=== PATIENT | male | born 1945 | race Caucasian/White ===

== ENCOUNTER 2022-06-11 01:20 | Inpatient (IN) | payer OTHER ==
[2022-06-11] VITALS (15 sets, daily range): BP systolic 105–139; BP diastolic 52–80
[~2022-06-11] VITALS: Ht 167.6 cm; Wt 92.4 kg
[2022-06-11 03:05] LABS: Hematocrit 22.5 % (41.0-53.0); Hemoglobin 7.8 g/dL (13.5-17.5); Mean Corpuscular Hemoglobin 31.6 pg (28.0-32.0); Mean Corpuscular Hgb Conc. 34.6 g/dL (32.0-36.0); Mean Corpuscular Volume 91.4 fL (80.0-100.0); Red Blood Cells 2.46 10^6/uL (4.5-5.90); Red Cell Distribution Width 18.7 % (11.8-14.3)
[2022-06-11 03:08] LABS: Albumin 3.1 g/dL (3.4-5.0); Calcium 8.1 mg/dL (8.5-10.1); Potassium 3.7 mmol/L (3.5-5.1)
[2022-06-11 03:09] LABS: White Blood Cell 1.4 10^3/uL (4.4-10.8)
[2022-06-11 03:10] LABS: BUN/Creatinine Ratio 16.3; Lactic Acid w/Reflex 2.4 mmol/L (0.4-2.0)
[2022-06-11 03:11] LABS: Basophils % (manual) 0 (0.0-2.0); Blast Cells 0; Metamyelocytes % 0; Myelocytes % 0; Promyelocytes % 0; Reactive Lymphocytes 0
[2022-06-11 03:13] LABS: Bilirubin, Total 1.2 mg/dL (0.2-1.0); Total Protein 5.3 g/dL (6.4-8.2)
[2022-06-11] MEDS ORDERED: VANCOMYCIN PER PHARMACY 0 MG IV SCH (03:30)
[2022-06-11] MEDS ORDERED: CEFEPIME 1GM/ 50ML 50 ML IV ONE (03:30)
[2022-06-11] MEDS ORDERED: DOCUSATE SOD 100 MG CAP PO PRN (03:45)
[2022-06-11] MEDS ORDERED: AZITHROMYCIN 500MG/ 250ML 250 ML IV ONE (03:45)
[2022-06-11] MEDS ORDERED: DEXTROSE (50%) 50ML SYRG IV PRN (03:45)
[2022-06-11] MEDS ORDERED: ONDANSETRON HCL 4 MG/2 ML VIAL IV PRN (03:45)
[2022-06-11] MEDS ORDERED: ACETAMINOPHEN 500 MG TAB PO PRN (03:45)
[2022-06-11] MEDS: LACTATED RINGER'S 1,000 ML IV SCH ×2 (04:00→23:45)
[2022-06-11] MEDS ORDERED: methylPREDNISolone SOD SUCC 40 MG/ML VL IV ONE (04:30)
[2022-06-11] MEDS ORDERED: MORPHINE SULFATE INJ 2 MG/ml SYRG IV PRN (04:30)
[2022-06-11] MEDS ORDERED: FUROSEMIDE 20 MG/2 ML VIAL IV ONE (04:30)
[2022-06-11] MEDS ORDERED: ALBUTEROL SULF 2.5 MG/0.5ML(0.5%) NEB SOLN NEB PRN (04:30)
[2022-06-11] MEDS ORDERED: IPRATROPIUM BROM 0.5 MG/2.5ML INH SOL NEB PRN (04:30)
[2022-06-11] MEDS ORDERED: NITROGLYCERIN 0.4 MG SL TAB SL PRN (04:30)
[2022-06-11] MEDS ORDERED: ALBUMIN 25% 100 ML IV ONE (04:30)
[2022-06-11 05:13] LABS: Albumin 2.5 g/dL (3.4-5.0); BUN/Creatinine Ratio 21.1; Calcium 6.9 mg/dL (8.5-10.1); Potassium 3.3 mmol/L (3.5-5.1)
[2022-06-11 05:16] LABS: Bilirubin, Total 0.9 mg/dL (0.2-1.0); Total Protein 4.3 g/dL (6.4-8.2)
[2022-06-11 05:18] LABS: Hematocrit 18.8 % (41.0-53.0); Mean Corpuscular Hemoglobin 31.5 pg (28.0-32.0); Mean Corpuscular Hgb Conc. 33.3 g/dL (32.0-36.0); Mean Corpuscular Volume 94.7 fL (80.0-100.0); Red Blood Cells 1.98 10^6/uL (4.5-5.90); Red Cell Distribution Width 18.9 % (11.8-14.3)
[2022-06-11 05:42] LABS: Band Neutrophils % (manual) 18; Eosinophils % (manual) 7 (0-7); Lymphocytes % (manual) 16 (10.0-50.0); Monocytes % (manual) 3 (0-12)
[2022-06-11 06:08] LABS: White Blood Cell 0.9 10^3/uL (4.4-10.8)
[2022-06-11 06:09] LABS: Basophils % (manual) 0 (0.0-2.0); Blast Cells 0; Hemoglobin 6.3 g/dL (13.5-17.5); Myelocytes % 0; Reactive Lymphocytes 0
[2022-06-11 07:17] LABS: Band Neutrophils % (manual) 14; Eosinophils % (manual) 4 (0-7); Lymphocytes % (manual) 21 (10.0-50.0); Metamyelocytes % 1; Monocytes % (manual) 3 (0-12); Promyelocytes % 1
[2022-06-11] MEDS: MULTIPLE VITAMIN TAB PO SCH (09:34)
[2022-06-11] MEDS: FUROSEMIDE 20 MG/2 ML VIAL IV SCH (09:34)
[2022-06-11] MEDS: HYDROcodone-ACET 5/325MG TAB PO PRN ×3 (09:46→22:06)
[2022-06-11] MEDS: FAMOTIDINE (10MG/ML) 2ML VL IV SCH ×2 (10:03→22:23)
[2022-06-11] MEDS: ACCU-CHEK COMFORT CURVE STRIP VI SCH ×4 (12:01→22:27)
[2022-06-11] MEDS: InsuLIN REG 1unit/0.01ml Soln (100units/ml) SC SCH ×4 (12:04→23:00)
[2022-06-11] MEDS ORDERED: MULT1TAB65 PO (12:40)
[2022-06-11] MEDS ORDERED: B-COCAP34 PO (12:40)
[2022-06-11] MEDS ORDERED: ATOR10TA PO (12:40)
[2022-06-11] MEDS ORDERED: ASCO-22 PO (12:40)
[2022-06-11] MEDS ORDERED: OXY5T PO (12:40)
[2022-06-11] MEDS ORDERED: LEVO50TA7 PO (12:40)
[2022-06-11] MEDS ORDERED: CHON400C PO (12:40)
[2022-06-11] MEDS ORDERED: MORP15TA PO (12:40)
[2022-06-11] MEDS ORDERED: TAMS1CAP25 PO (12:40)
[2022-06-11] MEDS ORDERED: GUAI400T35 PO (12:40)
[2022-06-11] MEDS ORDERED: MECL12.514 PO (12:40)
[2022-06-11] MEDS ORDERED: ALLO300T2 PO (12:40)
[2022-06-11] MEDS ORDERED: OMEG100078 PO (12:40)
[2022-06-11] MEDS ORDERED: DOCU100T15 PO (12:40)
[2022-06-11] MEDS ORDERED: GABA300C10 PO (12:40)
[2022-06-11] MEDS ORDERED: SERT50TA19 PO (12:40)
[2022-06-11] MEDS ORDERED: CALC-509 PO (12:40)
[2022-06-11] MEDS ORDERED: MELA3TAB42 PO (12:40)
[2022-06-11] MEDS ORDERED: OMEP20TA PO (12:40)
[2022-06-11] MEDS ORDERED: GLUC750T29 PO (12:40)
[2022-06-11] MEDS ORDERED: SENN-62 PO (12:40)
[2022-06-11] MEDS: methylPREDNISolone SOD SUCC 40 MG/ML VL IV SCH ×4 (14:23→22:21)
[2022-06-11] MEDS: FILGRASTIM(TBO) 480 MCG/0.8 ML SYRG SC SCH (17:47)
[2022-06-12] VITALS (11 sets, daily range): BP systolic 108–144; BP diastolic 61–81
[2022-06-12] MEDS: CEFEPIME 1GM/ 50ML 50 ML IV SCH ×2 (00:32→09:28)
[2022-06-12] MEDS ORDERED: FUROSEMIDE 20 MG/2 ML VIAL IV ONE (01:00)
[2022-06-12] MEDS ORDERED: IOHEXOL 350 MG/ML 100ML IJ ONE (01:35)
[2022-06-12] MEDS: methylPREDNISolone SOD SUCC 40 MG/ML VL IV SCH ×2 (06:24→14:00)
[2022-06-12] MEDS: ACCU-CHEK COMFORT CURVE STRIP VI SCH ×2 (06:24→11:49)
[2022-06-12] MEDS: InsuLIN REG 1unit/0.01ml Soln (100units/ml) SC SCH ×2 (06:35→12:13)
[2022-06-12 06:36] LABS: Hematocrit 31.6 % (41.0-53.0); Hemoglobin 10.8 g/dL (13.5-17.5); Mean Corpuscular Hemoglobin 30.9 pg (28.0-32.0); Mean Corpuscular Hgb Conc. 34.3 g/dL (32.0-36.0); Red Blood Cells 3.51 10^6/uL (4.5-5.90); Red Cell Distribution Width 16.9 % (11.8-14.3)
[2022-06-12 06:44] LABS: Potassium 3.4 mmol/L (3.5-5.1)
[2022-06-12 06:50] LABS: Albumin 3.9 g/dL (3.4-5.0); Calcium 8.8 mg/dL (8.5-10.1)
[2022-06-12 06:56] LABS: Basophils % (manual) 0 (0.0-2.0); Blast Cells 0; Eosinophils % (manual) 0 (0-7); Promyelocytes % 0; Reactive Lymphocytes 0
[2022-06-12 07:01] LABS: Bilirubin, Total 2.5 mg/dL (0.2-1.0); Total Protein 6.3 g/dL (6.4-8.2)
[2022-06-12 08:52] LABS: Band Neutrophils % (manual) 8; Lymphocytes % (manual) 16 (10.0-50.0); Metamyelocytes % 4; Monocytes % (manual) 6 (0-12); Myelocytes % 1
[2022-06-12] MEDS: FUROSEMIDE 20 MG/2 ML VIAL IV SCH (09:28)
[2022-06-12] MEDS: FAMOTIDINE (10MG/ML) 2ML VL IV SCH (09:30)
[2022-06-12] MEDS: MULTIPLE VITAMIN TAB PO SCH (09:31)
[2022-06-12] MEDS: FILGRASTIM(TBO) 480 MCG/0.8 ML SYRG SC SCH (09:31)
[2022-06-12] MEDS ORDERED: AZITHROMYCIN 500MG/ 250ML 250 ML IV SCH (10:00)
[2022-06-12] MEDS ORDERED: AZIT500T66 PO (11:24)
[2022-06-12] MEDS ORDERED: POTASSIUM EFFERVESENT TAB 25 MEQ PO ONE (11:45)
== END 2022-06-12 15:33 | disposition home or self-care (01) | DRG 871 ==
LOC: ER 01:20 → TELE 04:16 → TELE-WESTW 05:37
PROVIDERS: ADMIT Nurse Practitioner Family; ATTEND Family Medicine
PROC: 30233N1 Transfusion of Nonautologous Red Blood Cells into Peripheral Vein, Percutaneous Approach (ICD-10-PCS; 2022-06-11)
PROC: 30233R1 Transfusion of Nonautologous Platelets into Peripheral Vein, Percutaneous Approach (ICD-10-PCS; principal; 2022-06-12)
DX: A41.9 Sepsis, unspecified organism (principal); J18.9 Pneumonia, unspecified organism; J96.01 Acute respiratory failure with hypoxia; D61.818 Other pancytopenia; R50.81 Fever presenting with conditions classified elsewhere; Z20.822 Contact with and (suspected) exposure to COVID-19; R73.9 Hyperglycemia, unspecified; Z88.1 Allergy status to other antibiotic agents; Z88.8 Allergy status to other drugs, medicaments and biological substances; Z85.72 Personal history of non-Hodgkin lymphomas; J40 Bronchitis, not specified as acute or chronic
CPT/HCPCS: 36415; 71045; 71260; 80053; 82962; 83036; 83605; 83615; 83880; 84484; 85007; 85027; 85379; 86850; 86900; 86901; 86920; 87040; 87081; 93005; 94640; 96365; 96375; 99291; G0378; J1447; J1642; J1815; J3490; P9047

== ENCOUNTER 2023-06-27 23:53 | Inpatient (IN) | payer OTHER ==
[~2023-06-27] VITALS: Ht 175.3 cm; Wt 94.3 kg
[~2023-06-27 23:53] MED LIST: ALLO300T2 PO; ASCO500T16 PO; ATOR10TA PO; AZIT500T66 PO; B-COCAP34 PO; CALC-509 PO; CHON400C PO; DOCU100T15 PO; GABA-1250 PO; GLUC750T29 PO; GUAI400T35 PO; LEVO50TA7 PO; MECL1TAB31 PO; MELA3TAB42 PO; MORP15TA PO; MULT1TAB65 PO; OMEG-20 PO; OMEP20TA PO; OXY5T PO; SENN-62 PO; SERT-206 PO; TAMS1CAP25 PO
[2023-06-28 00:31] VITALS: PULSE 96; RESP 20; O2SAT 95
[2023-06-28] MEDS ORDERED: SODIUM CHLORIDE 0.9% 1,000 ML IVB ONE (01:15)
[2023-06-28 02:07] LABS: Basophils # (auto) 0 10 ^3/uL (0-0.2); Eosinophils # (auto) 0 10 ^3/uL (0-0.8); Eosinophils % (auto) 0.4 % (0.0-7.0); Hematocrit 22.4 % (41.0-53.0); Hemoglobin 7.9 g/dL (13.5-17.5); Lymphocytes # (auto) 0.2 10 ^3/uL (0.4-5.4); Mean Corpuscular Hgb Conc. 35.3 g/dL (32.0-36.0); Monocytes # (auto) 0.2 10 ^3/uL (0-1.3); Red Blood Cells 2.72 10^6/uL (4.5-5.90); White Blood Cell 2.4 10^3/uL (4.4-10.8)
[2023-06-28 02:08] LABS: Basophils % (auto) 0.5 % (0.0-2.0); Lymphocytes % (auto) 9.3 % (10.0-50.0); Mean Corpuscular Volume 82.2 fL (80.0-100.0); Monocytes % (auto) 7.2 % (0.0-12.0); Neutrophils % (auto) 82.6 % (37.0-80.0); Nucleated Red Blood Cells % 0.1 %; Red Cell Distribution Width 13.9 % (11.8-14.3)
[2023-06-28 02:24] LABS: Alanine Aminotransferase 83 U/L (7-40); Albumin 3.8 g/dL (3.2-4.8); Alkaline Phosphatase 121 U/L (46-116); Anion Gap 3.9 (5-15); Aspartate Aminotransferase 42 U/L (13-40); BUN/Creatinine Ratio 25.6 (10.0-20.0); Blood Alcohol 3.3 mg/dL (<10); Blood Urea Nitrogen 22 mg/dL (9-23); Calcium 9.2 mg/dL (8.7-10.4); Carbon Dioxide 30.1 mmol/L (20-30); Chloride 106 mmol/L (98-107); Glucose 193 mg/dL (74-106); Magnesium 1.7 mg/dL (1.6-2.6); Potassium 4.5 mmol/L (3.5-5.1); Sodium 140 mmol/L (136-145)
[2023-06-28 02:25] LABS: Bilirubin, Total 0.6 mg/dL (0.2-1.0); Total Protein 5.6 g/dL (5.7-8.2)
[2023-06-28 03:25] LABS: Platelet Estimate Markedly Decreased
[2023-06-28] MEDS ORDERED: MORPHINE SULFATE INJ 2 MG/ml SYRG IV PRN (09:45)
[2023-06-28] MEDS ORDERED: NITROGLYCERIN 0.4 MG SL TAB SL PRN (09:45)
[2023-06-28] MEDS ORDERED: ACETAMINOPHEN 325 MG TAB PO PRN (09:45)
[2023-06-28] MEDS ORDERED: GABAPENTIN 300 MG CAP PO PRN (09:45)
[2023-06-28] MEDS: CALCIUM CARBONATE PO SCH (10:00)
[2023-06-28] MEDS: CHONDROITIN SULFATE PO SCH (10:00)
[2023-06-28] MEDS: Omega-3 Fatty Acids (Fish Oil) 1,000 MG CAPSULE PO SCH (10:00)
[2023-06-28] MEDS ORDERED: DOCUSATE SOD 100 MG CAP PO PRN (10:00)
[2023-06-28] MEDS: B COMPLEX VITAMINS PO SCH (10:00)
[2023-06-28] MEDS: CHOLECALCIFEROL PO SCH (10:00)
[2023-06-28] MEDS: [UNRECOGNIZED DRUG - OTHER] PO SCH (10:00)
[2023-06-28] MEDS ORDERED: ENOXAPARIN SOD 40 MG/0.4 ML SYRINGE SC SCH (10:00)
[2023-06-28] MEDS: GLUCOSAMINE HYDROCHLORIDE PO SCH (10:00)
[2023-06-28 10:27] LABS: Lipase 32 U/L (12-53); Triglycerides 218 mg/dL (< 150)
[2023-06-28 10:28] LABS: LDL Cholesterol 97 mg/dL (< 100)
[2023-06-28 10:29] LABS: Cholesterol 164 mg/dL (< 200); HDL Cholesterol 22 mg/dL (40-59)
[2023-06-28 10:42] LABS: Hepatitis B Surface Antigen Negative (Negative)
[2023-06-28] MEDS: ALLOPURINOL 300 MG TAB PO SCH ×2 (10:52→10:56)
[2023-06-28] MEDS: MULTIPLE VITAMINS W/ MINERALS TAB PO SCH (10:52)
[2023-06-28] MEDS: ASCORBIC ACID 500 MG TAB PO SCH (10:53)
[2023-06-28] MEDS: SERTRALINE HCL 50 MG TAB PO SCH (10:53)
[2023-06-28] MEDS: LEVOTHYROXINE SODIUM 50 MCG TAB PO SCH (10:56)
[2023-06-28] MEDS: SODIUM CHLORIDE 0.9% 1,000 ML IV SCH ×2 (10:57→23:13)
[2023-06-28 11:03] LABS: Hepatitis A Ab IgM Negative
[2023-06-28 11:04] LABS: Hepatitis B Core IgM Negative; Hepatitis C Antibody Negative (Negative)
[2023-06-28 11:04] LABS: Urine Bacteria NONE SEEN /hpf (None Seen); Urine Blood TRACE /uL (Negative); Urine Clarity Clear (Clear); Urine Color Yellow (Yellow); Urine Protein, UAD TRACE (Negative); Urine Specific Gravity 1.018 (1.001-1.035); Urine Urobilinogen Normal (Negative); Urine WBC 30 /hpf (0 - 3); Urine pH 5.5 (5.0-8.0)
[2023-06-28 12:01] LABS: Amphetamine Screen, Urine Neg (NEGATIVE)
[2023-06-28 12:03] LABS: Barbiturate Scree,Urine Neg (NEGATIVE); Benzodiazephine Screen, Urine Neg (NEGATIVE); Cannabinoid Screen, Urine Neg (NEGATIVE); Cocaine Screen, Urine Neg (NEGATIVE); Opiate Scree,Urine Pos (NEGATIVE); Phencyclidine Screen, Urine Neg (NEGATIVE)
[2023-06-28] MEDS ORDERED: ATORVASTATIN 20 MG TAB PO SCH (18:00)
[2023-06-28 19:48] VITALS: PULSE 108; RESP 20; O2SAT 96
[2023-06-28] MEDS ORDERED: HYDROcodone-ACET 5/325MG TAB PO ONE (20:45)
[2023-06-28] MEDS: TAMSULOSIN HYDROCHLORIDE 0.4 MG CAP PO SCH (22:34)
[2023-06-28] MEDS: MORPHINE SULFATE INJ 2 MG/ml SYRG IV PRN (23:52)
[2023-06-29] VITALS (10 sets, daily range): BP systolic 115–137; BP diastolic 53–65; PULSE 79–106; RESP 16–20; TEMP 97.9–98.7; O2SAT 97–98
[2023-06-29] MEDS ORDERED: ONDANSETRON HCL 4 MG/2 ML VIAL IV PRN (03:45)
[2023-06-29] MEDS: LEVOTHYROXINE SODIUM 50 MCG TAB PO SCH (06:16)
[2023-06-29 06:52] LABS: Basophils # (auto) 0 10 ^3/uL (0-0.2); Basophils % (auto) 0.4 % (0.0-2.0); Eosinophils # (auto) 0 10 ^3/uL (0-0.8)
[2023-06-29 06:55] LABS: Eosinophils % (auto) 0.5 % (0.0-7.0); Hematocrit 20.2 % (41.0-53.0); Lymphocytes # (auto) 0.2 10 ^3/uL (0.4-5.4); Lymphocytes % (auto) 14.2 % (10.0-50.0); Mean Corpuscular Hgb Conc. 33.8 g/dL (32.0-36.0); Mean Corpuscular Volume 82.7 fL (80.0-100.0); Monocytes # (auto) 0.2 10 ^3/uL (0-1.3); Monocytes % (auto) 9.3 % (0.0-12.0); Neutrophils # (auto) 1.2 10 ^3/uL (1.6-8.6); Neutrophils % (auto) 75.6 % (37.0-80.0); Red Blood Cells 2.44 10^6/uL (4.5-5.90); Red Cell Distribution Width 13.7 % (11.8-14.3)
[2023-06-29 06:57] LABS: Alanine Aminotransferase 68 U/L (7-40); Alkaline Phosphatase 103 U/L (46-116); Anion Gap 5.2 (5-15); Calcium 8.6 mg/dL (8.7-10.4); Carbon Dioxide 29.8 mmol/L (20-30); Chloride 105 mmol/L (98-107); Sodium 140 mmol/L (136-145)
[2023-06-29 06:58] LABS: BUN/Creatinine Ratio 25.4 (10.0-20.0); Blood Urea Nitrogen 17 mg/dL (9-23); Glucose 171 mg/dL (74-106)
[2023-06-29 07:00] LABS: Albumin 3.4 g/dL (3.2-4.8); Aspartate Aminotransferase 30 U/L (13-40)
[2023-06-29 07:01] LABS: Bilirubin, Total 0.6 mg/dL (0.2-1.0); Total Protein 5.2 g/dL (5.7-8.2)
[2023-06-29 07:45] LABS: Hemoglobin 6.8 g/dL (13.5-17.5); White Blood Cell 1.6 10^3/uL (4.4-10.8)
[2023-06-29] MEDS: B COMPLEX VITAMINS PO SCH (08:40)
[2023-06-29] MEDS: CHOLECALCIFEROL PO SCH (08:40)
[2023-06-29] MEDS: CALCIUM CARBONATE PO SCH (08:40)
[2023-06-29] MEDS: CHONDROITIN SULFATE PO SCH (08:40)
[2023-06-29] MEDS: [UNRECOGNIZED DRUG - OTHER] PO SCH (08:40)
[2023-06-29] MEDS: GLUCOSAMINE HYDROCHLORIDE PO SCH (08:41)
[2023-06-29] MEDS: Omega-3 Fatty Acids (Fish Oil) 1,000 MG CAPSULE PO SCH (08:41)
[2023-06-29] MEDS: ALLOPURINOL 300 MG TAB PO SCH (08:42)
[2023-06-29] MEDS: ASCORBIC ACID 500 MG TAB PO SCH (08:42)
[2023-06-29] MEDS: MULTIPLE VITAMINS W/ MINERALS TAB PO SCH (08:42)
[2023-06-29] MEDS: SERTRALINE HCL 50 MG TAB PO SCH (08:42)
[2023-06-29] MEDS ORDERED: PANTOPRAZOLE 40 MG TAB PO SCH (10:00)
[2023-06-29] MEDS: SODIUM CHLORIDE 0.9% 1,000 ML IV SCH (10:08)
[2023-06-29] MEDS ORDERED: CLINIMIX PER PHARMACY 0 ML IV SCH (11:45)
[2023-06-29] MEDS ORDERED: PANTOPRAZOLE 40 MG/10 ML VIAL INJ IV ONE (11:45)
[2023-06-29] MEDS ORDERED: levoFLOXacin 500MG 100 ML IV ONE (11:45)
[2023-06-29 12:26] LABS: Magnesium 1.8 mg/dL (1.6-2.6)
[2023-06-29 12:27] LABS: Phosphorus 3.7 mg/dL (2.4-5.1)
[2023-06-29] MEDS: MORPHINE SULFATE INJ 2 MG/ml SYRG IV PRN ×2 (12:33→17:53)
[2023-06-29] MEDS ORDERED: DEXTROSE (50%) 50ML SYRG IV SCH (13:00)
[2023-06-29] MEDS: metroNIDAZOLE 500MG/100ML 100 ML IV SCH ×2 (13:52→21:34)
[2023-06-29] MEDS: InsuLIN REG 1unit/0.01ml Soln (100units/ml) SC SCH (18:00)
[2023-06-29] MEDS: ACCU-CHEK COMFORT CURVE STRIP VI SCH (18:08)
[2023-06-29] MEDS: TAMSULOSIN HYDROCHLORIDE 0.4 MG CAP PO SCH (21:24)
[2023-06-29] MEDS: ATORVASTATIN 20 MG TAB PO SCH (21:24)
[2023-06-29 22:35] LABS: Basophils # (auto) 0 10 ^3/uL (0-0.2); Eosinophils # (auto) 0 10 ^3/uL (0-0.8); Hemoglobin 7.9 g/dL (13.5-17.5); Lymphocytes # (auto) 0.2 10 ^3/uL (0.4-5.4); Monocytes # (auto) 0.1 10 ^3/uL (0-1.3); Neutrophils # (auto) 1.3 10 ^3/uL (1.6-8.6); Red Cell Distribution Width 13.9 % (11.8-14.3)
[2023-06-29 22:37] LABS: Basophils % (auto) 0.4 % (0.0-2.0); Eosinophils % (auto) 0.7 % (0.0-7.0); Hematocrit 22.8 % (41.0-53.0); Lymphocytes % (auto) 13.7 % (10.0-50.0); Mean Corpuscular Hemoglobin 28.8 pg (28.0-32.0); Mean Corpuscular Hgb Conc. 34.7 g/dL (32.0-36.0); Mean Corpuscular Volume 82.9 fL (80.0-100.0); Monocytes % (auto) 8.2 % (0.0-12.0); Red Blood Cells 2.75 10^6/uL (4.5-5.90)
[2023-06-29 23:14] LABS: White Blood Cell 1.7 10^3/uL (4.4-10.8)
[2023-06-29 23:16] LABS: Platelet Estimate Decreased
[2023-06-29] MEDS: AMINO ACID INFUSION IN D10W 1,000 ML IV SCH (23:43)
[2023-06-30] VITALS (8 sets, daily range): BP systolic 108–142; BP diastolic 59–97; PULSE 73–107; RESP 16–21; TEMP 98.1–98.7; O2SAT 97–100
[2023-06-30] MEDS: ACCU-CHEK COMFORT CURVE STRIP VI SCH ×5 (00:12→23:20)
[2023-06-30] MEDS: InsuLIN REG 1unit/0.01ml Soln (100units/ml) SC SCH ×6 (00:40→23:49)
[2023-06-30] MEDS: SODIUM CHLORIDE 0.9% 1,000 ML IV SCH ×2 (01:45→15:11)
[2023-06-30] MEDS: metroNIDAZOLE 500MG/100ML 100 ML IV SCH ×3 (05:32→22:29)
[2023-06-30] MEDS: LEVOTHYROXINE SODIUM 50 MCG TAB PO SCH (06:04)
[2023-06-30 07:26] LABS: INR 1.06 (0.9-1.15); Partial Thromboplastin Time 30.2 SEC (24.5-34.5); Prothrombin Time 11.1 sec (9.3-11.8)
[2023-06-30 07:29] LABS: Basophils # (auto) 0 10 ^3/uL (0-0.2); Basophils % (auto) 0.4 % (0.0-2.0); Eosinophils # (auto) 0 10 ^3/uL (0-0.8); Eosinophils % (auto) 0.6 % (0.0-7.0); Hematocrit 27.3 % (41.0-53.0); Lymphocytes # (auto) 0.2 10 ^3/uL (0.4-5.4); Mean Corpuscular Hemoglobin 27.5 pg (28.0-32.0); Mean Corpuscular Volume 83.3 fL (80.0-100.0); Monocytes # (auto) 0.1 10 ^3/uL (0-1.3); Monocytes % (auto) 7.2 % (0.0-12.0); Neutrophils # (auto) 1.3 10 ^3/uL (1.6-8.6); Neutrophils % (auto) 77.8 % (37.0-80.0); Nucleated Red Blood Cells % 0.6 %; Red Blood Cells 3.27 10^6/uL (4.5-5.90); Red Cell Distribution Width 13.8 % (11.8-14.3)
[2023-06-30 07:35] LABS: White Blood Cell 1.7 10^3/uL (4.4-10.8)
[2023-06-30 08:35] LABS: Alanine Aminotransferase 76 U/L (7-40); Albumin 3.6 g/dL (3.2-4.8); Alkaline Phosphatase 106 U/L (46-116); Anion Gap 7.4 (5-15); Aspartate Aminotransferase 46 U/L (13-40); BUN/Creatinine Ratio 23.2 (10.0-20.0); Bilirubin, Total 0.8 mg/dL (0.2-1.0); Blood Urea Nitrogen 13 mg/dL (9-23); Calcium 8.8 mg/dL (8.5-10.1); Carbon Dioxide 27.6 mmol/L (20-30); Chloride 106 mmol/L (98-107); Glucose 150 mg/dL (74-106); Magnesium 1.7 mg/dL (1.6-2.6); Phosphorus 3.9 mg/dL (2.4-5.1); Sodium 141 mmol/L (136-145); Total Protein 5.5 g/dL (5.7-8.2)
[2023-06-30] MEDS: levoFLOXacin 500MG 100 ML IV SCH (09:15)
[2023-06-30] MEDS: MORPHINE SULFATE INJ 2 MG/ml SYRG IV PRN ×4 (09:16→22:34)
[2023-06-30] MEDS: MULTIPLE VITAMINS W/ MINERALS TAB PO SCH (09:16)
[2023-06-30] MEDS: ALLOPURINOL 300 MG TAB PO SCH (09:16)
[2023-06-30] MEDS: SERTRALINE HCL 50 MG TAB PO SCH (09:16)
[2023-06-30] MEDS: PANTOPRAZOLE 40 MG/10 ML VIAL INJ IV SCH (09:16)
[2023-06-30] MEDS: AMINO ACID INFUSION IN D10W 1,000 ML IV SCH (20:33)
[2023-06-30] MEDS: TAMSULOSIN HYDROCHLORIDE 0.4 MG CAP PO SCH (22:28)
[2023-06-30] MEDS: ATORVASTATIN 20 MG TAB PO SCH (22:28)
[2023-07-01] VITALS (7 sets, daily range): BP systolic 107–133; BP diastolic 54–66; PULSE 76–105; RESP 15–20; TEMP 97.2–98.8; O2SAT 98–100
[2023-07-01] MEDS: SODIUM CHLORIDE 0.9% 1,000 ML IV SCH ×2 (04:25→13:14)
[2023-07-01] MEDS: MORPHINE SULFATE INJ 2 MG/ml SYRG IV PRN ×5 (04:54→22:02)
[2023-07-01 05:30] LABS: Basophils # (auto) 0 10 ^3/uL (0-0.2); Eosinophils # (auto) 0 10 ^3/uL (0-0.8); Hemoglobin 7.6 g/dL (13.5-17.5); Lymphocytes # (auto) 0.2 10 ^3/uL (0.4-5.4); Monocytes # (auto) 0.1 10 ^3/uL (0-1.3); Neutrophils # (auto) 0.9 10 ^3/uL (1.6-8.6)
[2023-07-01] MEDS: ACCU-CHEK COMFORT CURVE STRIP VI SCH ×3 (05:33→18:02)
[2023-07-01] MEDS: metroNIDAZOLE 500MG/100ML 100 ML IV SCH ×3 (05:33→21:59)
[2023-07-01 05:34] LABS: Basophils % (auto) 0.4 % (0.0-2.0); Eosinophils % (auto) 1.2 % (0.0-7.0); Hematocrit 22.2 % (41.0-53.0); Lymphocytes % (auto) 15.9 % (10.0-50.0); Mean Corpuscular Hemoglobin 28.6 pg (28.0-32.0); Mean Corpuscular Hgb Conc. 34.3 g/dL (32.0-36.0); Mean Corpuscular Volume 83.3 fL (80.0-100.0); Monocytes % (auto) 8.1 % (0.0-12.0); Neutrophils % (auto) 74.4 % (37.0-80.0); Red Blood Cells 2.66 10^6/uL (4.5-5.90); Red Cell Distribution Width 13.9 % (11.8-14.3)
[2023-07-01 05:38] LABS: White Blood Cell 1.3 10^3/uL (4.4-10.8)
[2023-07-01 05:44] LABS: Alanine Aminotransferase 63 U/L (7-40); Albumin 3.3 g/dL (3.2-4.8); Alkaline Phosphatase 101 U/L (46-116); Anion Gap 4.7 (5-15); Aspartate Aminotransferase 34 U/L (13-40); BUN/Creatinine Ratio 21.9 (10.0-20.0); Blood Urea Nitrogen 14 mg/dL (9-23); Calcium 8.4 mg/dL (8.7-10.4); Carbon Dioxide 30.3 mmol/L (20-30); Chloride 106 mmol/L (98-107); Glucose 173 mg/dL (74-106); Magnesium 1.6 mg/dL (1.6-2.6); Potassium 3.7 mmol/L (3.5-5.1); Sodium 141 mmol/L (136-145)
[2023-07-01 05:45] LABS: Bilirubin, Total 0.6 mg/dL (0.2-1.0); Phosphorus 3.5 mg/dL (2.4-5.1); Total Protein 4.9 g/dL (5.7-8.2)
[2023-07-01] MEDS: InsuLIN REG 1unit/0.01ml Soln (100units/ml) SC SCH ×3 (05:45→18:00)
[2023-07-01 07:59] LABS: Ovalocytes FEW; Platelet Estimate Markedly Decreased; Stomatocytes Few
[2023-07-01] MEDS: levoFLOXacin 500MG 100 ML IV SCH (09:03)
[2023-07-01] MEDS: PANTOPRAZOLE 40 MG/10 ML VIAL INJ IV SCH (09:03)
[2023-07-01] MEDS: MULTIPLE VITAMINS W/ MINERALS TAB PO SCH (09:04)
[2023-07-01] MEDS: ALLOPURINOL 300 MG TAB PO SCH (09:04)
[2023-07-01] MEDS: SERTRALINE HCL 50 MG TAB PO SCH (09:04)
[2023-07-01] MEDS: LEVOTHYROXINE SODIUM 50 MCG TAB PO SCH (09:04)
[2023-07-01] MEDS: FILGRASTIM(TBO) 480 MCG/0.8 ML SYRG SC SCH (13:09)
[2023-07-01] MEDS: AMINO ACID INFUSION IN D10W 1,000 ML IV SCH (19:51)
[2023-07-01] MEDS: TAMSULOSIN HYDROCHLORIDE 0.4 MG CAP PO SCH (21:59)
[2023-07-01] MEDS: ATORVASTATIN 20 MG TAB PO SCH (21:59)
[2023-07-02] VITALS (7 sets, daily range): BP systolic 120–135; BP diastolic 50–70; PULSE 88–111; RESP 15–20; TEMP 98.2–98.6; O2SAT 93–99
[2023-07-02] MEDS: ACCU-CHEK COMFORT CURVE STRIP VI SCH ×5 (00:13→23:49)
[2023-07-02] MEDS: InsuLIN REG 1unit/0.01ml Soln (100units/ml) SC SCH ×5 (01:12→23:52)
[2023-07-02] MEDS: MORPHINE SULFATE INJ 2 MG/ml SYRG IV PRN ×4 (02:51→22:39)
[2023-07-02] MEDS: LEVOTHYROXINE SODIUM 50 MCG TAB PO SCH (06:22)
[2023-07-02 06:24] LABS: Alanine Aminotransferase 55 U/L (7-40); Albumin 3.3 g/dL (3.2-4.8); Alkaline Phosphatase 118 U/L (46-116); Anion Gap 6.7 (5-15); Aspartate Aminotransferase 42 U/L (13-40); BUN/Creatinine Ratio 23.7 (10.0-20.0); Bilirubin, Total 0.7 mg/dL (0.2-1.0); Blood Urea Nitrogen 14 mg/dL (9-23); Calcium 8.4 mg/dL (8.7-10.4); Carbon Dioxide 27.3 mmol/L (20-30); Chloride 106 mmol/L (98-107); Glucose 158 mg/dL (74-106); Magnesium 1.3 mg/dL (1.6-2.6); Phosphorus 3.1 mg/dL (2.4-5.1); Potassium 3.5 mmol/L (3.5-5.1); Sodium 140 mmol/L (136-145); Total Protein 4.8 g/dL (5.7-8.2)
[2023-07-02] MEDS: metroNIDAZOLE 500MG/100ML 100 ML IV SCH ×3 (06:30→22:24)
[2023-07-02] MEDS: SODIUM CHLORIDE 0.9% 1,000 ML IV SCH ×2 (06:54→20:25)
[2023-07-02 07:26] LABS: Basophils # (auto) 0 10 ^3/uL (0-0.2); Eosinophils # (auto) 0 10 ^3/uL (0-0.8); Lymphocytes # (auto) 0.3 10 ^3/uL (0.4-5.4); Lymphocytes % (auto) 7.4 % (10.0-50.0); Monocytes # (auto) 0.1 10 ^3/uL (0-1.3); Neutrophils # (auto) 3.4 10 ^3/uL (1.6-8.6); White Blood Cell 3.8 10^3/uL (4.4-10.8)
[2023-07-02 07:33] LABS: Basophils % (auto) 0.4 % (0.0-2.0); Eosinophils % (auto) 0.6 % (0.0-7.0); Hemoglobin 8.1 g/dL (13.5-17.5); Mean Corpuscular Hemoglobin 28.2 pg (28.0-32.0); Mean Corpuscular Hgb Conc. 33.6 g/dL (32.0-36.0); Mean Corpuscular Volume 83.7 fL (80.0-100.0); Monocytes % (auto) 2.4 % (0.0-12.0); Neutrophils % (auto) 89.2 % (37.0-80.0); Red Blood Cells 2.87 10^6/uL (4.5-5.90); Red Cell Distribution Width 13.7 % (11.8-14.3)
[2023-07-02 08:40] LABS: Platelet Estimate Decreased
[2023-07-02] MEDS: levoFLOXacin 500MG 100 ML IV SCH (09:33)
[2023-07-02] MEDS: MULTIPLE VITAMINS W/ MINERALS TAB PO SCH (09:33)
[2023-07-02] MEDS: ALLOPURINOL 300 MG TAB PO SCH (09:33)
[2023-07-02] MEDS: PANTOPRAZOLE 40 MG/10 ML VIAL INJ IV SCH (09:33)
[2023-07-02] MEDS: SERTRALINE HCL 50 MG TAB PO SCH (09:33)
[2023-07-02] MEDS: FILGRASTIM(TBO) 480 MCG/0.8 ML SYRG SC SCH (12:48)
[2023-07-02] MEDS: ATORVASTATIN 20 MG TAB PO SCH (22:36)
[2023-07-02] MEDS: TAMSULOSIN HYDROCHLORIDE 0.4 MG CAP PO SCH (22:36)
[2023-07-03 05:00] VITALS: BP 121/51; PULSE 83; RESP 19; TEMP 97.8; O2SAT 97
[2023-07-03] MEDS: metroNIDAZOLE 500MG/100ML 100 ML IV SCH (05:37)
[2023-07-03] MEDS: ACCU-CHEK COMFORT CURVE STRIP VI SCH ×2 (05:38→11:51)
[2023-07-03] MEDS: InsuLIN REG 1unit/0.01ml Soln (100units/ml) SC SCH ×2 (05:38→12:04)
[2023-07-03 06:02] LABS: Basophils # (auto) 0 10 ^3/uL (0-0.2); Eosinophils # (auto) 0 10 ^3/uL (0-0.8); Eosinophils % (auto) 0.7 % (0.0-7.0); Hematocrit 21.6 % (41.0-53.0); Hemoglobin 7.7 g/dL (13.5-17.5); Lymphocytes # (auto) 0.3 10 ^3/uL (0.4-5.4); Monocytes # (auto) 0.1 10 ^3/uL (0-1.3); Red Blood Cells 2.64 10^6/uL (4.5-5.90); Red Cell Distribution Width 13.8 % (11.8-14.3); White Blood Cell 2.9 10^3/uL (4.4-10.8)
[2023-07-03 06:07] LABS: Basophils % (auto) 0.3 % (0.0-2.0); Mean Corpuscular Hemoglobin 29.1 pg (28.0-32.0); Mean Corpuscular Hgb Conc. 35.6 g/dL (32.0-36.0); Monocytes % (auto) 4.2 % (0.0-12.0); Neutrophils # (auto) 2.5 10 ^3/uL (1.6-8.6); Neutrophils % (auto) 85.8 % (37.0-80.0); Nucleated Red Blood Cells % 0.3 %
[2023-07-03 06:20] LABS: Alanine Aminotransferase 53 U/L (7-40); Albumin 3.3 g/dL (3.2-4.8); Alkaline Phosphatase 119 U/L (46-116); Aspartate Aminotransferase 33 U/L (13-40); BUN/Creatinine Ratio 23.8 (10.0-20.0); Bilirubin, Total 0.8 mg/dL (0.2-1.0); Blood Urea Nitrogen 15 mg/dL (9-23); Calcium 8.5 mg/dL (8.5-10.1); Chloride 108 mmol/L (98-107); Glucose 119 mg/dL (74-106); Potassium 3.3 mmol/L (3.5-5.1); Sodium 143 mmol/L (136-145); Total Protein 4.9 g/dL (5.7-8.2)
[2023-07-03] MEDS: LEVOTHYROXINE SODIUM 50 MCG TAB PO SCH (06:49)
[2023-07-03 06:59] LABS: Anion Gap 7.3 (5-15); Carbon Dioxide 27.7 mmol/L (20-30)
[2023-07-03] MEDS ORDERED: POTASSIUM CHL 20 Meq TABLET PO ONE (07:15)
[2023-07-03 08:00] VITALS: PULSE 106
[2023-07-03] MEDS: ALLOPURINOL 300 MG TAB PO SCH (08:54)
[2023-07-03] MEDS: SERTRALINE HCL 50 MG TAB PO SCH (08:54)
[2023-07-03] MEDS: MULTIPLE VITAMINS W/ MINERALS TAB PO SCH (08:54)
[2023-07-03] MEDS: levoFLOXacin 500MG 100 ML IV SCH (08:55)
[2023-07-03] MEDS: SODIUM CHLORIDE 0.9% 1,000 ML IV SCH (08:59)
[2023-07-03 09:00] VITALS: BP 139/64; PULSE 107; RESP 14; TEMP 98.6; O2SAT 98
[2023-07-03] MEDS ORDERED: PANTOPRAZOLE 40 MG TAB PO SCH (10:00)
[2023-07-03] MEDS: MORPHINE SULFATE INJ 2 MG/ml SYRG IV PRN (10:23)
[2023-07-03 10:47] LABS: Platelet Estimate Decreased
[2023-07-03 12:55] VITALS: BP 150/72; PULSE 106; RESP 16; TEMP 98.5; O2SAT 99
[2023-07-03] MEDS ORDERED: LEVO500T91 PO (14:43)
[2023-07-03] MEDS ORDERED: METR-344 PO (14:43)
[2023-07-03 14:52] VITALS: BP 15/72; PULSE 106; RESP 16; TEMP 36.9; O2SAT 99
== END 2023-07-03 16:00 | disposition home or self-care (01) | DRG 871 ==
LOC: ER 23:53 → EDUNIT# 23:53 → EDBD 23:53 → TELE 06-28 09:43 → TELE-EAST 06-29 02:36
PROVIDERS: ADMIT Internal Medicine
PROC: 30233R1 Transfusion of Nonautologous Platelets into Peripheral Vein, Percutaneous Approach (ICD-10-PCS; principal; 2023-06-29)
PROC: 30233N1 Transfusion of Nonautologous Red Blood Cells into Peripheral Vein, Percutaneous Approach (ICD-10-PCS; 2023-06-29)
PROC: 05HD33Z Insertion of Infusion Device into Right Cephalic Vein, Percutaneous Approach (ICD-10-PCS; 2023-07-01)
PROC: B54MZZA Ultrasonography of Right Upper Extremity Veins, Guidance (ICD-10-PCS; 2023-07-01)
DX: A41.9 Sepsis, unspecified organism (principal); G93.41 Metabolic encephalopathy; D61.818 Other pancytopenia; G45.9 Transient cerebral ischemic attack, unspecified; E44.1 Mild protein-calorie malnutrition; C85.90 Non-Hodgkin lymphoma, unspecified, unspecified site; F11.90 Opioid use, unspecified, uncomplicated; K76.0 Fatty (change of) liver, not elsewhere classified; N30.90 Cystitis, unspecified without hematuria; E66.01 Morbid (severe) obesity due to excess calories; K52.9 Noninfective gastroenteritis and colitis, unspecified; R73.9 Hyperglycemia, unspecified; R74.01 Elevation of levels of liver transaminase levels; E03.9 Hypothyroidism, unspecified; C88.0 Waldenstrom macroglobulinemia; R32 Unspecified urinary incontinence; E78.5 Hyperlipidemia, unspecified; Z92.21 Personal history of antineoplastic chemotherapy; Z80.3 Family history of malignant neoplasm of breast; Z82.49 Family history of ischemic heart disease and other diseases of the circulatory system; Z87.440 Personal history of urinary (tract) infections; Z88.1 Allergy status to other antibiotic agents; Z88.6 Allergy status to analgesic agent; Z90.49 Acquired absence of other specified parts of digestive tract; Z99.81 Dependence on supplemental oxygen; Z68.30 Body mass index [BMI] 30.0-30.9, adult; Z71.3 Dietary counseling and surveillance
CPT/HCPCS: 36415; 70450; 71045; 74176; 76705; 80053; 80061; 80074; 80307; 80320; 81001; 82728; 82962; 83036; 83605; 83690; 83735; 84100; 84443; 84484; 85025; 85610; 85730; 86850; 86900; 86901; 86920; 87040; 87045; 87427; 87493; 96360; 97110; 97116; 97163; 97530; C9113; G0378; J1447; J1815; J1956; J2405; J3490

== ENCOUNTER 2023-12-07 08:11 | Inpatient (IN) | payer MEDICARE, OTHER ==
[~2023-12-07] VITALS: Ht 177.8 cm; Wt 107.0 kg
[2023-12-07] VITALS (12 sets, daily range): BP systolic 102–120; BP diastolic 50–69; PULSE 87–125; RESP 14–22; TEMP 98.1–99.9; O2SAT 97–100
[~2023-12-07 08:11] MED LIST changes: +LEVO500T91 PO; +METR-344 PO
[2023-12-07 09:04] LABS: Alanine Aminotransferase 78 U/L (7-40); Albumin 2.8 g/dL (3.2-4.8); Alkaline Phosphatase 122 U/L (46-116); Anion Gap 8 (5-15); Aspartate Aminotransferase 45 U/L (13-40); BUN/Creatinine Ratio 68.6 (10.0-20.0); Bilirubin, Total 0.6 mg/dL (0.2-1.0); Blood Urea Nitrogen 48 mg/dL (9-23); Calcium 8.3 mg/dL (8.5-10.1); Carbon Dioxide 32 mmol/L (20-30); Chloride 105 mmol/L (98-107); Glucose 224 mg/dL (74-106); Potassium 4.5 mmol/L (3.5-5.1); Sodium 145 mmol/L (136-145); Total Protein 3.7 g/dL (5.7-8.2)
[2023-12-07 11:05] LABS: Basophils # (auto) 0 10 ^3/uL (0-0.2); Eosinophils # (auto) 0 10 ^3/uL (0-0.8); Lymphocytes # (auto) 0.1 10 ^3/uL (0.4-5.4); Monocytes # (auto) 0 10 ^3/uL (0-1.3); Red Blood Cells 1.46 10^6/uL (4.5-5.90); Red Cell Distribution Width 13.7 % (11.8-14.3)
[2023-12-07 11:07] LABS: Basophils % (auto) 1.1 % (0.0-2.0); Eosinophils % (auto) 0.5 % (0.0-7.0); Hematocrit 12.4 % (41.0-53.0); Mean Corpuscular Hemoglobin 29.2 pg (28.0-32.0); Mean Corpuscular Hgb Conc. 34.2 g/dL (32.0-36.0); Mean Corpuscular Volume 85.2 fL (80.0-100.0); Monocytes % (auto) 9.3 % (0.0-12.0); Neutrophils # (auto) 0.2 10 ^3/uL (1.6-8.6); Neutrophils % (auto) 56.1 % (37.0-80.0)
[2023-12-07 11:30] LABS: Hemoglobin 4.3 g/dL (13.5-17.5); White Blood Cell 0.4 10^3/uL (4.4-10.8)
[2023-12-07 11:37] LABS: Macrocytosis Moderate; Stomatocytes Few; Tear Drop Cells FEW
[2023-12-07 11:38] LABS: Platelet Estimate Markedly Decreased
[2023-12-07] MEDS ORDERED: METOCLOPRAMIDE HCL 5MG/ml INJ 2ml VIAL IV PRN (12:30)
[2023-12-07] MEDS ORDERED: IOHEXOL 300 MG/ML 100ML BOTTLE IJ ONE (12:37)
[2023-12-07] MEDS ORDERED: VANCOMYCIN PER PHARMACY 0 MG IV SCH (14:15)
[2023-12-07 14:35] LABS: Triglycerides 246 mg/dL (< 150)
[2023-12-07 14:36] LABS: LDL Cholesterol 63 mg/dL (< 100)
[2023-12-07 14:37] LABS: Cholesterol 130 mg/dL (< 200); HDL Cholesterol 16 mg/dL (40-59)
[2023-12-07] MEDS: FUROSEMIDE 40 MG/4 ML VIAL IV ONE (14:40)
[2023-12-07] MEDS: SODIUM CHLORIDE 0.9% 1,000 ML IV SCH (15:30)
[2023-12-07 16:18] LABS: Amphetamine Screen, Urine Neg (NEGATIVE); Barbiturate Scree,Urine Neg (NEGATIVE); Benzodiazephine Screen, Urine Neg (NEGATIVE); Cocaine Screen, Urine Neg (NEGATIVE)
[2023-12-07 16:19] LABS: Cannabinoid Screen, Urine Neg (NEGATIVE); Opiate Scree,Urine Pos (NEGATIVE); Phencyclidine Screen, Urine Neg (NEGATIVE)
[2023-12-07 16:20] LABS: Urine Bacteria NONE SEEN /hpf (None Seen); Urine Blood Negative /uL (Negative); Urine Clarity Clear (Clear); Urine Color Yellow (Yellow); Urine Protein, UAD Negative (Negative); Urine Specific Gravity 1.016 (1.001-1.035); Urine Urobilinogen Normal (Negative); Urine WBC 2 /hpf (0 - 3); Urine pH 5.5 (5.0-8.0)
[2023-12-07] MEDS: LINEZOLID 600MG/300ML 300 ML IV SCH (16:50)
[2023-12-07] MEDS: FILGRASTIM (TBO) 300 MCG/0.5 ML SYRG SC ONE (16:58)
[2023-12-07] MEDS: CEFEPIME 1GM/ 50ML 50 ML IV ONE (18:23)
[2023-12-07] MEDS: HYDROcodone-ACET 5/325MG TAB PO PRN (21:07)
[2023-12-07] MEDS: ATORVASTATIN 20 MG TAB PO SCH (23:10)
[2023-12-08] VITALS (17 sets, daily range): BP systolic 110–144; BP diastolic 54–75; PULSE 65–109; RESP 15–22; TEMP 94.5–98.3; O2SAT 94–100
[2023-12-08 02:41] LABS: Hemoglobin 6.8 g/dL (13.5-17.5)
[2023-12-08] MEDS: CEFEPIME 1GM/ 50ML 50 ML IV SCH (02:48)
[2023-12-08 06:07] LABS: Mean Corpuscular Volume 86.8 fL (80.0-100.0)
[2023-12-08 06:10] LABS: Hematocrit 16.5 % (41.0-53.0); Mean Corpuscular Hemoglobin 29.8 pg (28.0-32.0); Mean Corpuscular Hgb Conc. 34.3 g/dL (32.0-36.0); Red Cell Distribution Width 13.8 % (11.8-14.3)
[2023-12-08 06:18] LABS: Hemoglobin 5.7 g/dL (13.5-17.5)
[2023-12-08 06:19] LABS: White Blood Cell 0.4 10^3/uL (4.4-10.8)
[2023-12-08 06:20] LABS: Alanine Aminotransferase 57 U/L (7-40); Albumin 2.4 g/dL (3.2-4.8); Alkaline Phosphatase 91 U/L (46-116); Anion Gap 5 (5-15); Aspartate Aminotransferase 30 U/L (13-40); BUN/Creatinine Ratio 62.9 (10.0-20.0); Basophils % (manual) 0 (0.0-2.0); Blast Cells 0; Blood Urea Nitrogen 39 mg/dL (9-23); Calcium 8.1 mg/dL (8.7-10.4); Carbon Dioxide 33 mmol/L (20-30); Chloride 107 mmol/L (98-107); Eosinophils % (manual) 0 (0-7); Glucose 241 mg/dL (74-106); Magnesium 1.9 mg/dL (1.6-2.6); Metamyelocytes % 0; Myelocytes % 0; Phosphorus 3.7 mg/dL (2.4-5.1); Promyelocytes % 0; Sodium 145 mmol/L (136-145); Total Protein 3.8 g/dL (5.7-8.2)
[2023-12-08 06:22] LABS: Bilirubin, Total 0.5 mg/dL (0.2-1.0)
[2023-12-08] MEDS: LEVOTHYROXINE SODIUM 50 MCG TAB PO SCH (06:54)
[2023-12-08 07:03] LABS: Band Neutrophils % (manual) 25; Lymphocytes % (manual) 49 (10.0-50.0); Monocytes % (manual) 6 (0-12); Reactive Lymphocytes 2
[2023-12-08 07:04] LABS: Hypochromia Moderate; Platelet Estimate Markedly Decreased
[2023-12-08] MEDS ORDERED: ENOXAPARIN SOD 40 MG/0.4 ML SYRINGE SC SCH (10:00)
[2023-12-08] MEDS: PANTOPRAZOLE 80 MG in SODIUM CHL 0.9% 100 ML IV ONE (15:45)
[2023-12-08] MEDS: PANTOPRAZOLE 40mg/50ML NS AE 50 ML IV SCH (18:01)
[2023-12-08 19:22] LABS: Basophils # (auto) 0 10 ^3/uL (0-0.2); Basophils % (auto) 0.7 % (0.0-2.0); Eosinophils # (auto) 0 10 ^3/uL (0-0.8); Eosinophils % (auto) 0.3 % (0.0-7.0); Hematocrit 30.9 % (41.0-53.0); Hemoglobin 10.3 g/dL (13.5-17.5); Lymphocytes # (auto) 0.2 10 ^3/uL (0.4-5.4); Lymphocytes % (auto) 34.1 % (10.0-50.0); Mean Corpuscular Hgb Conc. 33.3 g/dL (32.0-36.0); Monocytes # (auto) 0 10 ^3/uL (0-1.3); Monocytes % (auto) 7.2 % (0.0-12.0); Neutrophils # (auto) 0.4 10 ^3/uL (1.6-8.6); Neutrophils % (auto) 57.7 % (37.0-80.0); Nucleated Red Blood Cells % 0.6 %; Red Blood Cells 3.43 10^6/uL (4.5-5.90); Red Cell Distribution Width 14.1 % (11.8-14.3)
[2023-12-08 19:39] LABS: INR 1.14 (0.9-1.15); Partial Thromboplastin Time 34.4 SEC (24.5-34.5); Prothrombin Time 11.9 sec (9.3-11.8)
[2023-12-08 19:46] LABS: Alanine Aminotransferase 63 U/L (7-40); Alkaline Phosphatase 104 U/L (46-116); Anion Gap 7 (5-15); Aspartate Aminotransferase 44 U/L (13-40); BUN/Creatinine Ratio 64.5 (10.0-20.0); Blood Urea Nitrogen 40 mg/dL (9-23); Carbon Dioxide 30 mmol/L (20-30); Chloride 106 mmol/L (98-107); Glucose 217 mg/dL (74-106); Potassium 4.6 mmol/L (3.5-5.1); Sodium 143 mmol/L (136-145)
[2023-12-08 19:47] LABS: Albumin 2.7 g/dL (3.2-4.8); Bilirubin, Total 0.6 mg/dL (0.2-1.0)
[2023-12-08 20:02] LABS: White Blood Cell 0.6 10^3/uL (4.4-10.8)
[2023-12-08 20:05] LABS: Platelet Estimate Markedly Decreased
[2023-12-09] VITALS (10 sets, daily range): BP systolic 125–147; BP diastolic 52–65; PULSE 60–98; RESP 16–99; TEMP 98–98.6; O2SAT 22–100
[2023-12-09 06:23] LABS: Hemoglobin 8.5 g/dL (13.5-17.5)
[2023-12-09 06:26] LABS: Hematocrit 24.9 % (41.0-53.0); Mean Corpuscular Hemoglobin 30.1 pg (28.0-32.0); Mean Corpuscular Hgb Conc. 34.4 g/dL (32.0-36.0); Mean Corpuscular Volume 87.7 fL (80.0-100.0); Red Blood Cells 2.84 10^6/uL (4.5-5.90); Red Cell Distribution Width 13.9 % (11.8-14.3)
[2023-12-09 06:38] LABS: INR 1.18 (0.9-1.15); Prothrombin Time 12.3 sec (9.3-11.8)
[2023-12-09 06:43] LABS: Alanine Aminotransferase 51 U/L (7-40); Albumin 2.5 g/dL (3.2-4.8); Alkaline Phosphatase 99 U/L (46-116); Anion Gap 6 (5-15); Aspartate Aminotransferase 28 U/L (13-40); BUN/Creatinine Ratio 62.7 (10.0-20.0); Blood Urea Nitrogen 32 mg/dL (9-23); Calcium 8.1 mg/dL (8.7-10.4); Carbon Dioxide 31 mmol/L (20-30); Chloride 106 mmol/L (98-107); Glucose 184 mg/dL (74-106); Magnesium 1.9 mg/dL (1.6-2.6); Sodium 143 mmol/L (136-145)
[2023-12-09 06:44] LABS: Bilirubin, Total 0.7 mg/dL (0.2-1.0)
[2023-12-09 08:10] LABS: White Blood Cell 0.5 10^3/uL (4.4-10.8)
[2023-12-09 08:14] LABS: Band Neutrophils % (manual) 0; Blast Cells 0; Eosinophils % (manual) 0 (0-7); Metamyelocytes % 0; Myelocytes % 0; Promyelocytes % 0; Reactive Lymphocytes 0
[2023-12-09] MEDS ORDERED: IOHEXOL 300 MG/ML 100ML BOTTLE IJ ONE (09:54)
[2023-12-09 10:20] LABS: Platelet Estimate Markedly Decreased
[2023-12-09 10:25] LABS: Basophils % (manual) 1 (0.0-2.0); Lymphocytes % (manual) 39 (10.0-50.0); Monocytes % (manual) 4 (0-12)
[2023-12-09] MEDS: FILGRASTIM(TBO) 480 MCG/0.8 ML SYRG SC ONE (11:15)
[2023-12-09 12:52] LABS: Basophils # (auto) 0 10 ^3/uL (0-0.2); Eosinophils # (auto) 0 10 ^3/uL (0-0.8); Lymphocytes # (auto) 0.2 10 ^3/uL (0.4-5.4); Monocytes # (auto) 0 10 ^3/uL (0-1.3); Neutrophils # (auto) 0.2 10 ^3/uL (1.6-8.6)
[2023-12-09 12:54] LABS: Eosinophils % (auto) 0.2 % (0.0-7.0); Hematocrit 24.2 % (41.0-53.0); Hemoglobin 8.3 g/dL (13.5-17.5); Lymphocytes % (auto) 47.8 % (10.0-50.0); Mean Corpuscular Hemoglobin 30.5 pg (28.0-32.0); Mean Corpuscular Hgb Conc. 34.3 g/dL (32.0-36.0); Mean Corpuscular Volume 88.7 fL (80.0-100.0); Monocytes % (auto) 7.8 % (0.0-12.0); Neutrophils % (auto) 43.2 % (37.0-80.0); Nucleated Red Blood Cells % 0.5 %; Red Blood Cells 2.72 10^6/uL (4.5-5.90); Red Cell Distribution Width 13.5 % (11.8-14.3)
[2023-12-09 13:04] LABS: White Blood Cell 0.5 10^3/uL (4.4-10.8)
[2023-12-09] MEDS ORDERED: IOHEXOL 350 MG/ML 100ML IJ ONE (20:37)
[2023-12-10] VITALS (9 sets, daily range): BP systolic 108–135; BP diastolic 61–77; PULSE 93–114; RESP 16–20; TEMP 97.5–98.6; O2SAT 96–100
[2023-12-10 05:33] LABS: Mean Corpuscular Volume 87.7 fL (80.0-100.0)
[2023-12-10 05:35] LABS: Hematocrit 19.6 % (41.0-53.0); Mean Corpuscular Hemoglobin 31.3 pg (28.0-32.0); Mean Corpuscular Hgb Conc. 35.7 g/dL (32.0-36.0); Red Blood Cells 2.24 10^6/uL (4.5-5.90); Red Cell Distribution Width 13.3 % (11.8-14.3)
[2023-12-10 05:49] LABS: Alanine Aminotransferase 44 U/L (7-40); Albumin 2.5 g/dL (3.2-4.8); Alkaline Phosphatase 95 U/L (46-116); Calcium 8.4 mg/dL (8.5-10.1); Carbon Dioxide 32 mmol/L (20-30); Chloride 108 mmol/L (98-107)
[2023-12-10 05:50] LABS: Anion Gap 5 (5-15); Aspartate Aminotransferase 27 U/L (13-40); BUN/Creatinine Ratio 52.9 (10.0-20.0); Bilirubin, Total 0.6 mg/dL (0.2-1.0); Blood Urea Nitrogen 27 mg/dL (9-23); Glucose 159 mg/dL (74-106); Potassium 3.7 mmol/L (3.5-5.1); Sodium 145 mmol/L (136-145); Total Protein 3.8 g/dL (5.7-8.2)
[2023-12-10 06:17] LABS: White Blood Cell 0.5 10^3/uL (4.4-10.8)
[2023-12-10 06:19] LABS: Band Neutrophils % (manual) 0; Basophils % (manual) 0 (0.0-2.0); Blast Cells 0; Metamyelocytes % 0; Myelocytes % 0; Promyelocytes % 0; Reactive Lymphocytes 0
[2023-12-10 06:59] LABS: Eosinophils % (manual) 1 (0-7)
[2023-12-10 07:00] LABS: Lymphocytes % (manual) 58 (10.0-50.0); Monocytes % (manual) 10 (0-12)
[2023-12-10 07:03] LABS: Platelet Estimate Markedly Decreased
[2023-12-10] MEDS: HYDROmorphone HCL 2 MG/ML VL/or syr IV PRN (09:29)
[2023-12-10 10:03] LABS: Basophils # (auto) 0 10 ^3/uL (0-0.2); Eosinophils # (auto) 0 10 ^3/uL (0-0.8); Lymphocytes # (auto) 0.4 10 ^3/uL (0.4-5.4); Neutrophils # (auto) 0.3 10 ^3/uL (1.6-8.6)
[2023-12-10 10:05] LABS: Basophils % (auto) 1.1 % (0.0-2.0); Eosinophils % (auto) 1.2 % (0.0-7.0); Hematocrit 22.2 % (41.0-53.0); Hemoglobin 7.6 g/dL (13.5-17.5); Lymphocytes % (auto) 53.3 % (10.0-50.0); Mean Corpuscular Hemoglobin 30.5 pg (28.0-32.0); Mean Corpuscular Hgb Conc. 34.1 g/dL (32.0-36.0); Mean Corpuscular Volume 89.4 fL (80.0-100.0); Monocytes # (auto) 0.1 10 ^3/uL (0-1.3); Monocytes % (auto) 7.2 % (0.0-12.0); Neutrophils % (auto) 37.2 % (37.0-80.0); Nucleated Red Blood Cells % 0.8 %; Red Blood Cells 2.48 10^6/uL (4.5-5.90); Red Cell Distribution Width 13.4 % (11.8-14.3)
[2023-12-10 10:37] LABS: White Blood Cell 0.7 10^3/uL (4.4-10.8)
[2023-12-10] MEDS: LINEZOLID 600MG/300ML 300 ML IV SCH (10:52)
[2023-12-10] MEDS ORDERED: OXYC-998 PO (10:54)
[2023-12-10 12:48] LABS: Platelet Estimate Markedly Decreased
[2023-12-10 12:49] LABS: Anisocytosis Slight
[2023-12-10] MEDS ORDERED: DOXYCYCLINE 100MG/250ML 250 ML IV SCH (13:30)
[2023-12-10] MEDS: DOXYCYCLINE 100MG/250ML 250 ML IV SCH (16:35)
[2023-12-10] MEDS: CEFEPIME 1GM/ 50ML 50 ML IV SCH (18:17)
[2023-12-10] MEDS: FILGRASTIM(TBO) 480 MCG/0.8 ML SYRG SC ONE (18:45)
[2023-12-11] VITALS (13 sets, daily range): BP systolic 110–133; BP diastolic 50–76; PULSE 68–129; RESP 16–22; TEMP 97.7–98.3; O2SAT 93–100
[2023-12-11 06:53] LABS: Alanine Aminotransferase 47 U/L (7-40); Albumin 2.5 g/dL (3.2-4.8); Alkaline Phosphatase 97 U/L (46-116); Anion Gap 5 (5-15); Aspartate Aminotransferase 29 U/L (13-40); BUN/Creatinine Ratio 49.1 (10.0-20.0); Blood Urea Nitrogen 27 mg/dL (9-23); Calcium 8.2 mg/dL (8.7-10.4); Carbon Dioxide 31 mmol/L (20-30); Chloride 110 mmol/L (98-107); Glucose 182 mg/dL (74-106); Magnesium 1.8 mg/dL (1.6-2.6); Potassium 3.9 mmol/L (3.5-5.1); Sodium 146 mmol/L (136-145)
[2023-12-11 06:54] LABS: Bilirubin, Total 0.6 mg/dL (0.2-1.0); Phosphorus 3.8 mg/dL (2.4-5.1); Total Protein 3.9 g/dL (5.7-8.2)
[2023-12-11 07:07] LABS: Basophils # (auto) 0 10 ^3/uL (0-0.2); Eosinophils # (auto) 0 10 ^3/uL (0-0.8); Hemoglobin 7.2 g/dL (13.5-17.5); Lymphocytes # (auto) 0.2 10 ^3/uL (0.4-5.4); Monocytes # (auto) 0 10 ^3/uL (0-1.3); Neutrophils # (auto) 0.3 10 ^3/uL (1.6-8.6); Red Cell Distribution Width 13.3 % (11.8-14.3)
[2023-12-11 07:09] LABS: Basophils % (auto) 0.3 % (0.0-2.0); Eosinophils % (auto) 1.7 % (0.0-7.0); Hematocrit 20.8 % (41.0-53.0); Lymphocytes % (auto) 31.9 % (10.0-50.0); Mean Corpuscular Hemoglobin 30.3 pg (28.0-32.0); Mean Corpuscular Hgb Conc. 34.4 g/dL (32.0-36.0); Mean Corpuscular Volume 88.2 fL (80.0-100.0); Monocytes % (auto) 3.7 % (0.0-12.0); Neutrophils % (auto) 62.4 % (37.0-80.0); Red Blood Cells 2.36 10^6/uL (4.5-5.90)
[2023-12-11 07:37] LABS: White Blood Cell 0.5 10^3/uL (4.4-10.8)
[2023-12-11 07:41] LABS: Platelet Estimate Markedly Decreased
[2023-12-11] MEDS: FILGRASTIM(TBO) 480 MCG/0.8 ML SYRG SC SCH (18:06)
[2023-12-12] VITALS (9 sets, daily range): BP systolic 102–135; BP diastolic 48–78; PULSE 76–120; RESP 17–22; TEMP 36.6; O2SAT 96–99
[2023-12-12] MEDS: ONDANSETRON HCL 4 MG/2 ML VIAL IV PRN (04:00)
[2023-12-12 06:19] LABS: Alanine Aminotransferase 44 U/L (7-40); Albumin 2.4 g/dL (3.2-4.8); Alkaline Phosphatase 89 U/L (46-116); Anion Gap 6 (5-15); Aspartate Aminotransferase 25 U/L (13-40); BUN/Creatinine Ratio 46.4 (10.0-20.0); Blood Urea Nitrogen 26 mg/dL (9-23); Calcium 7.6 mg/dL (8.7-10.4); Carbon Dioxide 28 mmol/L (20-30); Chloride 109 mmol/L (98-107); Glucose 184 mg/dL (74-106); Magnesium 1.8 mg/dL (1.6-2.6); Potassium 3.4 mmol/L (3.5-5.1); Sodium 143 mmol/L (136-145)
[2023-12-12 06:20] LABS: Bilirubin, Total 0.5 mg/dL (0.2-1.0); Total Protein 3.8 g/dL (5.7-8.2)
[2023-12-12 06:28] LABS: Basophils # (auto) 0 10 ^3/uL (0-0.2); Eosinophils # (auto) 0 10 ^3/uL (0-0.8); Hematocrit 18.1 % (41.0-53.0); Lymphocytes # (auto) 0.2 10 ^3/uL (0.4-5.4); Mean Corpuscular Hgb Conc. 34.3 g/dL (32.0-36.0); Monocytes # (auto) 0 10 ^3/uL (0-1.3); Neutrophils # (auto) 0.3 10 ^3/uL (1.6-8.6)
[2023-12-12 06:31] LABS: Basophils % (auto) 1.2 % (0.0-2.0); Lymphocytes % (auto) 42.1 % (10.0-50.0); Mean Corpuscular Hemoglobin 29.6 pg (28.0-32.0); Mean Corpuscular Volume 86.2 fL (80.0-100.0); Neutrophils % (auto) 49.7 % (37.0-80.0); Nucleated Red Blood Cells % 0.7 %; Red Cell Distribution Width 13.4 % (11.8-14.3)
[2023-12-12] MEDS: POTASSIUM CHL 20MEQ/100ML 100 ML IV ONE (06:55)
[2023-12-12 08:03] LABS: Hemoglobin 6.2 g/dL (13.5-17.5); White Blood Cell 0.6 10^3/uL (4.4-10.8)
[2023-12-12 08:04] LABS: Platelet Estimate Markedly Decreased
[2023-12-12 08:06] LABS: PSA Free <0.02 ng/mL; Prostate Specific Antigen <0.1 ng/mL (0.0-4.0)
[2023-12-12] MEDS: PANTOPRAZOLE 40 MG/10 ML VIAL INJ IV SCH (10:00)
[2023-12-12 17:35] LABS: Hematocrit 21.9 % (41.0-53.0); Hemoglobin 7.6 g/dL (13.5-17.5)
== END 2023-12-12 18:53 | disposition home or self-care (01) | DRG 840 ==
LOC: ER 08:11 → EDBD 08:11 → TELE 12:30 → TELE-WESTW 23:36
PROVIDERS: ADMIT Internal Medicine Pulmonary Disease; ATTEND Internal Medicine Pulmonary Disease
PROC: 30233R1 Transfusion of Nonautologous Platelets into Peripheral Vein, Percutaneous Approach (ICD-10-PCS; principal; 2023-12-07)
PROC: 30233N1 Transfusion of Nonautologous Red Blood Cells into Peripheral Vein, Percutaneous Approach (ICD-10-PCS; 2023-12-07)
DX: C85.90 Non-Hodgkin lymphoma, unspecified, unspecified site (principal); D61.810 Antineoplastic chemotherapy induced pancytopenia; I50.43 Acute on chronic combined systolic (congestive) and diastolic (congestive) heart failure; J15.69 Pneumonia due to other Gram-negative bacteria; J96.01 Acute respiratory failure with hypoxia; E44.0 Moderate protein-calorie malnutrition; I11.0 Hypertensive heart disease with heart failure; C88.0 Waldenstrom macroglobulinemia; Z68.33 Body mass index [BMI] 33.0-33.9, adult; K52.9 Noninfective gastroenteritis and colitis, unspecified; D46.4 Refractory anemia, unspecified; D70.9 Neutropenia, unspecified; E03.9 Hypothyroidism, unspecified; E77.8 Other disorders of glycoprotein metabolism; R73.9 Hyperglycemia, unspecified; R31.0 Gross hematuria; E78.5 Hyperlipidemia, unspecified; Z96.653 Presence of artificial knee joint, bilateral; Z99.81 Dependence on supplemental oxygen; Z86.73 Personal history of transient ischemic attack (TIA), and cerebral infarction without residual deficits; D63.0 Anemia in neoplastic disease
CPT/HCPCS: 36415; 71045; 71260; 74177; 76705; 80053; 80061; 80307; 81001; 82140; 82270; 83036; 83605; 83735; 83880; 84100; 84154; 84439; 84443; 84484; 85007; 85014; 85018; 85025; 85027; 85610; 85730; 86850; 86900; 86901; 86920; 87040; 87086; 87493; 92610; 93005; 93306; 93970; 97163; 99291; C9113; G0378; J1447; J2405; J3480; J3490

== ENCOUNTER 2023-12-17 09:52 | Inpatient (IN) | payer MEDICARE, OTHER ==
[2023-12-17] VITALS (10 sets, daily range): BP systolic 92–124; BP diastolic 36–65; PULSE 87–108; RESP 10–20; TEMP 97.6–98.6; O2SAT 98
[~2023-12-17] VITALS: Ht 167.6 cm; Wt 114.4 kg
[~2023-12-17 09:52] MED LIST changes: -AZIT500T66 PO; -LEVO500T91 PO; -METR-344 PO; -OXY5T PO; +OXYC-998 PO
[2023-12-17] MEDS: SODIUM CHLORIDE 0.9% 1,000 ML IVB ONE (10:03)
[2023-12-17 10:40] LABS: Basophils # (auto) 0 10 ^3/uL (0-0.2); Eosinophils # (auto) 0 10 ^3/uL (0-0.8); Lymphocytes # (auto) 0.2 10 ^3/uL (0.4-5.4); Monocytes # (auto) 0 10 ^3/uL (0-1.3); Neutrophils # (auto) 0.1 10 ^3/uL (1.6-8.6)
[2023-12-17 10:42] LABS: Basophils % (auto) 0.4 % (0.0-2.0); Eosinophils % (auto) 1.1 % (0.0-7.0); Hematocrit 16.3 % (41.0-53.0); Mean Corpuscular Hemoglobin 30.6 pg (28.0-32.0); Mean Corpuscular Hgb Conc. 34.3 g/dL (32.0-36.0); Mean Corpuscular Volume 89.2 fL (80.0-100.0); Monocytes % (auto) 5.4 % (0.0-12.0); Neutrophils % (auto) 32.7 % (37.0-80.0); Nucleated Red Blood Cells % 0.5 %; Red Blood Cells 1.82 10^6/uL (4.5-5.90); Red Cell Distribution Width 13.8 % (11.8-14.3)
[2023-12-17 10:55] LABS: INR 1.15 (0.9-1.15)
[2023-12-17 11:01] LABS: Alanine Aminotransferase 68 U/L (7-40); Albumin 2.3 g/dL (3.2-4.8); Alkaline Phosphatase 157 U/L (46-116); Anion Gap 5 (5-15); Aspartate Aminotransferase 31 U/L (13-40); BUN/Creatinine Ratio 60.4 (10.0-20.0); Bilirubin, Total 0.4 mg/dL (0.2-1.0); Calcium 7.8 mg/dL (8.5-10.1); Carbon Dioxide 26 mmol/L (20-30); Chloride 109 mmol/L (98-107); Glucose 161 mg/dL (74-106); Potassium 4.6 mmol/L (3.5-5.1); Sodium 140 mmol/L (136-145)
[2023-12-17 11:02] LABS: Total Protein 3.3 g/dL (5.7-8.2)
[2023-12-17 11:05] LABS: Lymphocytes % (auto) 60.4 % (10.0-50.0)
[2023-12-17 11:08] LABS: Hemoglobin 5.6 g/dL (13.5-17.5); White Blood Cell 0.3 10^3/uL (4.4-10.8)
[2023-12-17 11:14] LABS: Platelet Estimate Markedly Decreased
[2023-12-17 11:23] LABS: Blood Urea Nitrogen 87 mg/dL (9-23)
[2023-12-17] MEDS: NOREPINEPHRINE 8 MG/250ML KIT 250 ML IV SCH (11:30)
[2023-12-17 12:18] LABS: Urine Bacteria NONE SEEN /hpf (None Seen); Urine Blood 3+ /uL (Negative); Urine Clarity HAZY (Clear); Urine Color Yellow (Yellow); Urine Protein, UAD 1+ (Negative); Urine Specific Gravity 1.016 (1.001-1.035); Urine Urobilinogen Normal (Negative); Urine WBC 3 /hpf (0 - 3); Urine pH 5.5 (5.0-8.0)
[2023-12-17] MEDS ORDERED: ACETAMINOPHEN 325 MG TAB PO PRN (14:00)
[2023-12-17] MEDS ORDERED: ONDANSETRON HCL 4 MG/2 ML VIAL IV PRN (14:00)
[2023-12-17] MEDS ORDERED: NITROGLYCERIN 0.4 MG SL TAB SL PRN (14:00)
[2023-12-17] MEDS: SODIUM CHLOR 0.9% PF (SALINE LOCK) 10ML VIAL/SYR IV SCH (14:19)
[2023-12-17] MEDS: HYDROcodone-ACET 5/325MG TAB PO PRN (19:28)
[2023-12-17 20:12] LABS: Basophils # (auto) 0 10 ^3/uL (0-0.2); Eosinophils # (auto) 0 10 ^3/uL (0-0.8); Hemoglobin 8.8 g/dL (13.5-17.5); Lymphocytes # (auto) 0.2 10 ^3/uL (0.4-5.4); Monocytes # (auto) 0 10 ^3/uL (0-1.3); Neutrophils # (auto) 0.2 10 ^3/uL (1.6-8.6)
[2023-12-17] MEDS: FUROSEMIDE 40 MG/4 ML VIAL IV ONE (20:13)
[2023-12-17 20:14] LABS: Basophils % (auto) 0.4 % (0.0-2.0); Eosinophils % (auto) 0.5 % (0.0-7.0); Lymphocytes % (auto) 45.3 % (10.0-50.0); Mean Corpuscular Hemoglobin 29.9 pg (28.0-32.0); Mean Corpuscular Hgb Conc. 33.7 g/dL (32.0-36.0); Mean Corpuscular Volume 88.6 fL (80.0-100.0); Monocytes % (auto) 6.4 % (0.0-12.0); Neutrophils % (auto) 47.4 % (37.0-80.0); Red Blood Cells 2.94 10^6/uL (4.5-5.90); Red Cell Distribution Width 13.8 % (11.8-14.3)
[2023-12-17 21:14] LABS: White Blood Cell 0.4 10^3/uL (4.4-10.8)
[2023-12-17 21:17] LABS: Platelet Estimate Markedly Decreased; RBC Morphology Normal
[2023-12-17] MEDS: TAMSULOSIN HYDROCHLORIDE 0.4 MG CAP PO SCH (22:00)
[2023-12-17] MEDS: ATORVASTATIN 20 MG TAB PO SCH (22:00)
[2023-12-17] MEDS: FILGRASTIM (TBO) 300 MCG/0.5 ML SYRG SC ONE (22:04)
[2023-12-18 06:45] LABS: Basophils # (auto) 0 10 ^3/uL (0-0.2); Basophils % (auto) 0.8 % (0.0-2.0); Eosinophils # (auto) 0 10 ^3/uL (0-0.8); Eosinophils % (auto) 0.3 % (0.0-7.0); Hematocrit 23.1 % (41.0-53.0); Hemoglobin 7.8 g/dL (13.5-17.5); Lymphocytes # (auto) 0.2 10 ^3/uL (0.4-5.4); Lymphocytes % (auto) 45.1 % (10.0-50.0); Mean Corpuscular Hgb Conc. 33.9 g/dL (32.0-36.0); Mean Corpuscular Volume 88.4 fL (80.0-100.0); Monocytes # (auto) 0 10 ^3/uL (0-1.3); Monocytes % (auto) 4.8 % (0.0-12.0); Neutrophils # (auto) 0.2 10 ^3/uL (1.6-8.6); Nucleated Red Blood Cells % 0.2 %; Red Blood Cells 2.62 10^6/uL (4.5-5.90); Red Cell Distribution Width 13.8 % (11.8-14.3)
[2023-12-18 06:46] LABS: Alanine Aminotransferase 68 U/L (7-40); Albumin 2.5 g/dL (3.2-4.8); Alkaline Phosphatase 151 U/L (46-116); Anion Gap 7 (5-15); Calcium 8.3 mg/dL (8.5-10.1); Carbon Dioxide 25 mmol/L (20-30); Chloride 109 mmol/L (98-107); Glucose 159 mg/dL (74-106); Potassium 4.7 mmol/L (3.5-5.1); Sodium 141 mmol/L (136-145)
[2023-12-18 06:47] LABS: Aspartate Aminotransferase 37 U/L (13-40); BUN/Creatinine Ratio 54.8 (10.0-20.0); Bilirubin, Total 0.6 mg/dL (0.2-1.0); Total Protein 3.9 g/dL (5.7-8.2)
[2023-12-18 06:54] LABS: Blood Urea Nitrogen 80 mg/dL (9-23)
[2023-12-18 06:55] LABS: White Blood Cell 0.5 10^3/uL (4.4-10.8)
[2023-12-18] MEDS: LEVOTHYROXINE SODIUM 50 MCG TAB PO SCH (07:00)
[2023-12-18 08:05] VITALS: PULSE 95; RESP 20
[2023-12-18 08:08] LABS: Platelet Estimate Markedly Decreased
[2023-12-18] MEDS: SERTRALINE HCL 50 MG TAB PO SCH (10:00)
[2023-12-18] MEDS: PANTOPRAZOLE 40 MG TAB PO SCH (10:00)
[2023-12-18] MEDS: MICAFUNGIN SODIUM 100 MG in SODIUM CHL 0.9% 100 ML IV ONE (15:00)
[2023-12-18] MEDS ORDERED: VANCOMYCIN PER PHARMACY 0 MG IV SCH ×2 (15:00→17:00)
[2023-12-18] MEDS ORDERED: LEVOTHYROXINE SODIUM 25 MCG TAB PO ONE (15:00)
[2023-12-18] MEDS: CEFEPIME 1GM/ 50ML 50 ML IV ONE (15:00)
[2023-12-18] MEDS ORDERED: VANCOMYCIN HCL 1000 MG VL IV ONE (17:00)
[2023-12-18 17:03] LABS: Creatine Kinase IFCC < 15 U/L (46-171)
[2023-12-18 17:22] LABS: Lipase 20 U/L (12-53)
[2023-12-18] MEDS: VANCOMYCIN 1GM/200ML 200 ML IV ONE (19:24)
[2023-12-18] MEDS: diphenhdrAMINE HCL 50 MG/1 ML VL IV ONE (19:24)
[2023-12-18] MEDS: PANTOPRAZOLE 40 MG/10 ML VIAL INJ IV SCH (21:11)
[2023-12-18] MEDS: CEFEPIME 1GM/ 50ML 50 ML IV SCH (21:31)
[2023-12-18 22:18] VITALS: BP 102/60; PULSE 120; RESP 14; TEMP 98.5
[2023-12-18 22:40] VITALS: BP 98/57; PULSE 119; RESP 13; TEMP 98.5
[2023-12-18 22:47] LABS: COVID19 ANTIGEN SOFIA FIA NEGATIVE (NEGATIVE)
[2023-12-18 22:51] LABS: Rapid Influenza A Negative (Negative); Rapid Influenza B Negative (Negative)
[2023-12-19] VITALS (13 sets, daily range): BP systolic 93–122; BP diastolic 53–87; PULSE 80–125; RESP 12–16; TEMP 97.9–99.3; O2SAT 99–100
[2023-12-19 06:55] LABS: Basophils # (auto) 0 10 ^3/uL (0-0.2); Eosinophils # (auto) 0 10 ^3/uL (0-0.8); Eosinophils % (auto) 0.6 % (0.0-7.0); Lymphocytes # (auto) 0.2 10 ^3/uL (0.4-5.4); Monocytes # (auto) 0 10 ^3/uL (0-1.3); Neutrophils # (auto) 0.2 10 ^3/uL (1.6-8.6)
[2023-12-19 06:57] LABS: Basophils % (auto) 0.7 % (0.0-2.0); Hematocrit 18.4 % (41.0-53.0); Lymphocytes % (auto) 41.1 % (10.0-50.0); Mean Corpuscular Hemoglobin 30.8 pg (28.0-32.0); Mean Corpuscular Hgb Conc. 35.1 g/dL (32.0-36.0); Mean Corpuscular Volume 87.9 fL (80.0-100.0); Monocytes % (auto) 3.8 % (0.0-12.0); Neutrophils % (auto) 53.8 % (37.0-80.0); Nucleated Red Blood Cells % 0.2 %; Red Blood Cells 2.09 10^6/uL (4.5-5.90); Red Cell Distribution Width 13.3 % (11.8-14.3)
[2023-12-19] MEDS ORDERED: LEVOTHYROXINE SODIUM 50 MCG TAB PO SCH (07:00)
[2023-12-19 07:02] LABS: Alanine Aminotransferase 66 U/L (7-40); Albumin 2.5 g/dL (3.2-4.8); Alkaline Phosphatase 154 U/L (46-116); Anion Gap 7 (5-15); Aspartate Aminotransferase 29 U/L (13-40); Bilirubin, Total 0.4 mg/dL (0.2-1.0); Calcium 8.5 mg/dL (8.5-10.1); Carbon Dioxide 26 mmol/L (20-30); Chloride 110 mmol/L (98-107); Glucose 183 mg/dL (74-106); Potassium 4.6 mmol/L (3.5-5.1); Sodium 143 mmol/L (136-145)
[2023-12-19 07:20] LABS: Blood Urea Nitrogen 80 mg/dL (9-23)
[2023-12-19 07:21] LABS: Hemoglobin 6.4 g/dL (13.5-17.5); White Blood Cell 0.4 10^3/uL (4.4-10.8)
[2023-12-19 07:37] LABS: INR 1.27 (0.9-1.15); Partial Thromboplastin Time 40.7 SEC (24.5-34.5); Prothrombin Time 13.1 sec (9.3-11.8)
[2023-12-19] MEDS: MICAFUNGIN SODIUM 100 MG in SODIUM CHL 0.9% 100 ML IV SCH (14:04)
[2023-12-19] MEDS: FILGRASTIM(TBO) 480 MCG/0.8 ML SYRG SC SCH (14:13)
[2023-12-19] MEDS: VANCOMYCIN 1GM/200ML 200 ML IV SCH (15:38)
[2023-12-19 17:46] LABS: Basophils # (auto) 0 10 ^3/uL (0-0.2); Eosinophils # (auto) 0 10 ^3/uL (0-0.8); Monocytes # (auto) 0 10 ^3/uL (0-1.3); Neutrophils # (auto) 0.2 10 ^3/uL (1.6-8.6)
[2023-12-19 17:48] LABS: Basophils % (auto) 0.7 % (0.0-2.0); Eosinophils % (auto) 1.1 % (0.0-7.0); Lymphocytes # (auto) 0.1 10 ^3/uL (0.4-5.4); Lymphocytes % (auto) 41.9 % (10.0-50.0); Mean Corpuscular Hemoglobin 30.3 pg (28.0-32.0); Mean Corpuscular Hgb Conc. 33.4 g/dL (32.0-36.0); Mean Corpuscular Volume 90.8 fL (80.0-100.0); Monocytes % (auto) 6.4 % (0.0-12.0); Neutrophils % (auto) 49.9 % (37.0-80.0); Nucleated Red Blood Cells % 0.4 %; Red Blood Cells 2.21 10^6/uL (4.5-5.90); Red Cell Distribution Width 14.3 % (11.8-14.3)
[2023-12-19 18:20] LABS: White Blood Cell 0.4 10^3/uL (4.4-10.8)
[2023-12-19 18:21] LABS: Hemoglobin 6.7 g/dL (13.5-17.5)
[2023-12-19 18:41] LABS: Anisocytosis Slight; Ovalocytes FEW; Platelet Estimate Markedly Decreased
[2023-12-20] VITALS (40 sets, daily range): BP systolic 87–132; BP diastolic 29–66; PULSE 87–124; RESP 11–40; TEMP 96.2–99.1; O2SAT 97–100
[2023-12-20 04:46] LABS: Basophils # (auto) 0 10 ^3/uL (0-0.2); Eosinophils # (auto) 0 10 ^3/uL (0-0.8); Monocytes # (auto) 0 10 ^3/uL (0-1.3); Red Blood Cells 2.77 10^6/uL (4.5-5.90)
[2023-12-20 04:48] LABS: Eosinophils % (auto) 0.9 % (0.0-7.0); Hematocrit 24.9 % (41.0-53.0); Hemoglobin 8.5 g/dL (13.5-17.5); Lymphocytes # (auto) 0.3 10 ^3/uL (0.4-5.4); Mean Corpuscular Hemoglobin 30.8 pg (28.0-32.0); Mean Corpuscular Hgb Conc. 34.3 g/dL (32.0-36.0); Mean Corpuscular Volume 89.9 fL (80.0-100.0); Neutrophils # (auto) 0.2 10 ^3/uL (1.6-8.6); Neutrophils % (auto) 42.1 % (37.0-80.0); Nucleated Red Blood Cells % 0.3 %; Red Cell Distribution Width 14.4 % (11.8-14.3)
[2023-12-20 04:57] LABS: White Blood Cell 0.5 10^3/uL (4.4-10.8)
[2023-12-20 05:34] LABS: Potassium 4.5 mmol/L (3.5-5.1); Sodium 143 mmol/L (136-145)
[2023-12-20 05:37] LABS: Carbon Dioxide 26 mmol/L (20-30)
[2023-12-20 05:38] LABS: Calcium 8.1 mg/dL (8.7-10.4)
[2023-12-20 05:42] LABS: Glucose 175 mg/dL (74-106)
[2023-12-20 05:43] LABS: Alkaline Phosphatase 161 U/L (46-116); BUN/Creatinine Ratio 63.2 (10.0-20.0); Blood Urea Nitrogen 79 mg/dL (9-23); Magnesium 1.5 mg/dL (1.6-2.6)
[2023-12-20 05:44] LABS: Alanine Aminotransferase 70 U/L (7-40); Albumin 2.5 g/dL (3.2-4.8); Aspartate Aminotransferase 36 U/L (13-40)
[2023-12-20 05:45] LABS: Bilirubin, Total 0.4 mg/dL (0.2-1.0); Total Protein 3.8 g/dL (5.7-8.2)
[2023-12-20 05:57] LABS: Anion Gap 5 (5-15); Chloride 112 mmol/L (98-107)
[2023-12-20 07:06] LABS: CMV IgM Antibody <30.0 AU/mL (0.0-29.9); EBV Ab VCA IgG Antibody 84.1 U/mL (0.0-17.9); EBV Ab VCA IgM Antibody <36.0 U/mL (0.0-35.9); EBV Early Antigen IgG Antibody 32.6 U/mL (0.0-17.9)
[2023-12-20] MEDS: MAGNESIUM SULFATE 1GM/100ML 100 ML IV ONE (07:30)
[2023-12-20 09:05] LABS: Hepatitis B Surface Antigen Negative (Negative)
[2023-12-20 09:26] LABS: Hepatitis A Ab IgM Negative; Hepatitis B Core IgM Negative
[2023-12-20 09:27] LABS: Hepatitis C Antibody Negative (Negative)
[2023-12-20] MEDS: DOCUSATE SOD 100 MG CAP PO PRN (11:08)
[2023-12-20] MEDS: FUROSEMIDE 20 MG/2 ML VIAL IV ONE (14:30)
[2023-12-20] MEDS: diphenhdrAMINE HCL 50 MG/1 ML VL IM ONE (14:30)
[2023-12-21] VITALS (29 sets, daily range): BP systolic 88–131; BP diastolic 36–71; PULSE 90–127; RESP 11–20; TEMP 96.6–98.1; O2SAT 99–100
[2023-12-21 02:16] LABS: Basophils # (auto) 0 10 ^3/uL (0-0.2); Eosinophils # (auto) 0 10 ^3/uL (0-0.8); Lymphocytes # (auto) 0.2 10 ^3/uL (0.4-5.4); Monocytes # (auto) 0 10 ^3/uL (0-1.3); Neutrophils # (auto) 0.1 10 ^3/uL (1.6-8.6)
[2023-12-21 02:19] LABS: Basophils % (auto) 0.5 % (0.0-2.0); Eosinophils % (auto) 1.1 % (0.0-7.0); Hematocrit 21.6 % (41.0-53.0); Hemoglobin 7.3 g/dL (13.5-17.5); Lymphocytes % (auto) 57.8 % (10.0-50.0); Mean Corpuscular Hgb Conc. 33.9 g/dL (32.0-36.0); Mean Corpuscular Volume 91.4 fL (80.0-100.0); Monocytes % (auto) 4.6 % (0.0-12.0); Nucleated Red Blood Cells % 2.1 %; Red Blood Cells 2.36 10^6/uL (4.5-5.90)
[2023-12-21 02:22] LABS: White Blood Cell 0.4 10^3/uL (4.4-10.8)
[2023-12-21 02:38] LABS: Alanine Aminotransferase 86 U/L (7-40); Albumin 2.3 g/dL (3.2-4.8); Alkaline Phosphatase 182 U/L (46-116); Anion Gap 8 (5-15); Aspartate Aminotransferase 47 U/L (13-40); BUN/Creatinine Ratio 79.8 (10.0-20.0); Bilirubin, Total 0.5 mg/dL (0.2-1.0); Calcium 7.6 mg/dL (8.7-10.4); Carbon Dioxide 25 mmol/L (20-30); Chloride 112 mmol/L (98-107); Glucose 167 mg/dL (74-106); Magnesium 1.7 mg/dL (1.6-2.6); Potassium 4.4 mmol/L (3.5-5.1); Sodium 145 mmol/L (136-145); Total Protein 3.4 g/dL (5.7-8.2)
[2023-12-21 02:40] LABS: Blood Urea Nitrogen 91 mg/dL (9-23)
[2023-12-21] MEDS: diphenhdrAMINE HCL 25 MG CAP PO ONE (05:36)
[2023-12-21] MEDS: FUROSEMIDE 40 MG/4 ML VIAL IV SCH (10:58)
[2023-12-21] MEDS: MAGNESIUM OXIDE 400 MG TAB PO SCH (11:03)
[2023-12-21] MEDS ORDERED: LACTULOSE 20Gm/30ML SOLN PO PRN (13:45)
[2023-12-21 19:48] LABS: Hematocrit 19.2 % (41.0-53.0)
[2023-12-21 19:49] LABS: Hemoglobin 6.4 g/dL (13.5-17.5)
[2023-12-22] VITALS (64 sets, daily range): BP systolic 98–133; BP diastolic 48–80; PULSE 87–120; RESP 11–23; TEMP 90.2–98.5; O2SAT 94–100
[2023-12-22] MEDS: ALBUMIN 25% 50 ML IV SCH (04:15)
[2023-12-22 05:01] LABS: Basophils # (auto) 0 10 ^3/uL (0-0.2); Eosinophils # (auto) 0 10 ^3/uL (0-0.8); Lymphocytes # (auto) 0.2 10 ^3/uL (0.4-5.4); Mean Corpuscular Hgb Conc. 34.2 g/dL (32.0-36.0); Monocytes # (auto) 0 10 ^3/uL (0-1.3); Neutrophils # (auto) 0.2 10 ^3/uL (1.6-8.6)
[2023-12-22 05:11] LABS: Basophils % (auto) 2.6 % (0.0-2.0); Eosinophils % (auto) 0.9 % (0.0-7.0); Hematocrit 27.4 % (41.0-53.0); Hemoglobin 9.4 g/dL (13.5-17.5); Mean Corpuscular Hemoglobin 31.6 pg (28.0-32.0); Mean Corpuscular Volume 92.4 fL (80.0-100.0); Monocytes % (auto) 4.7 % (0.0-12.0); Neutrophils % (auto) 52.8 % (37.0-80.0); Red Blood Cells 2.97 10^6/uL (4.5-5.90); Red Cell Distribution Width 13.9 % (11.8-14.3)
[2023-12-22 05:21] LABS: Alanine Aminotransferase 88 U/L (7-40); Albumin 2.7 g/dL (3.2-4.8); Alkaline Phosphatase 180 U/L (46-116); Anion Gap 8 (5-15); Aspartate Aminotransferase 40 U/L (13-40); BUN/Creatinine Ratio 56.1 (10.0-20.0); Carbon Dioxide 24 mmol/L (20-30); Chloride 113 mmol/L (98-107); Glucose 191 mg/dL (74-106); Magnesium 1.5 mg/dL (1.6-2.6); Potassium 4.1 mmol/L (3.5-5.1); Sodium 145 mmol/L (136-145)
[2023-12-22 05:23] LABS: Bilirubin, Total 0.5 mg/dL (0.2-1.0); Total Protein 4.1 g/dL (5.7-8.2)
[2023-12-22 05:28] LABS: White Blood Cell 0.4 10^3/uL (4.4-10.8)
[2023-12-22 05:31] LABS: Blood Urea Nitrogen 64 mg/dL (9-23)
[2023-12-22] MEDS: MAGNESIUM SULFATE 1GM/100ML 100 ML IV ONE ×2 (06:23→11:26)
[2023-12-22] MEDS ORDERED: LEVOTHYROXINE SODIUM 25 MCG TAB PO ONE (08:30)
[2023-12-22] MEDS: MORPHINE SULFATE INJ 2 MG/ml SYRG IV PRN (09:54)
[2023-12-22] MEDS: DOCUSATE SOD 100 MG CAP PO PRN (11:25)
[2023-12-22] MEDS: LEVOTHYROXINE SODIUM 50 MCG TAB PO ONE (14:25)
[2023-12-22] MEDS: LEVOTHYROXINE SODIUM 25 MCG TAB PO ONE (14:25)
[2023-12-22] MEDS: diphenhdrAMINE HCL 50 MG/1 ML VL IV ONE (15:05)
[2023-12-23] VITALS (26 sets, daily range): BP systolic 60–135; BP diastolic 53–106; PULSE 13–128; RESP 12–21; TEMP 97–98.1; O2SAT 97–100
[2023-12-23] MEDS: HYDROcodone-ACET 10/325MG TAB PO PRN (04:20)
[2023-12-23 05:02] LABS: Mean Corpuscular Hemoglobin 31.2 pg (28.0-32.0)
[2023-12-23 05:06] LABS: Hematocrit 21.9 % (41.0-53.0); Hemoglobin 7.5 g/dL (13.5-17.5); Mean Corpuscular Hgb Conc. 34.4 g/dL (32.0-36.0); Mean Corpuscular Volume 90.8 fL (80.0-100.0); Red Blood Cells 2.41 10^6/uL (4.5-5.90); Red Cell Distribution Width 13.5 % (11.8-14.3)
[2023-12-23 05:20] LABS: Alanine Aminotransferase 86 U/L (7-40); Albumin 2.6 g/dL (3.2-4.8); Alkaline Phosphatase 181 U/L (46-116); Anion Gap 6 (5-15); Aspartate Aminotransferase 40 U/L (13-40); BUN/Creatinine Ratio 73.1 (10.0-20.0); Blood Urea Nitrogen 79 mg/dL (9-23); Calcium 8.5 mg/dL (8.7-10.4); Carbon Dioxide 27 mmol/L (20-30); Chloride 114 mmol/L (98-107); Glucose 185 mg/dL (74-106); Magnesium 1.9 mg/dL (1.6-2.6); Potassium 4.1 mmol/L (3.5-5.1); Sodium 147 mmol/L (136-145)
[2023-12-23 05:21] LABS: Bilirubin, Total 0.6 mg/dL (0.2-1.0); Total Protein 4.1 g/dL (5.7-8.2)
[2023-12-23] MEDS: LEVOTHYROXINE SODIUM 25 MCG TAB PO SCH (06:05)
[2023-12-23] MEDS: LEVOTHYROXINE SODIUM 50 MCG TAB PO SCH (06:05)
[2023-12-23 06:54] LABS: Basophils % (manual) 0 (0.0-2.0); Blast Cells 0; Eosinophils % (manual) 0 (0-7); Promyelocytes % 0; Reactive Lymphocytes 0; White Blood Cell 0.4 10^3/uL (4.4-10.8)
[2023-12-23] MEDS ORDERED: LEVOTHYROXINE SODIUM 25 MCG TAB PO SCH (07:00)
[2023-12-23 08:37] LABS: Band Neutrophils % (manual) 16; Lymphocytes % (manual) 40 (10.0-50.0); Metamyelocytes % 4; Monocytes % (manual) 8 (0-12); Myelocytes % 4; Platelet Estimate Markedly Decreased
[2023-12-23] MEDS: diphenhdrAMINE HCL 50 MG/1 ML VL IV ONE (09:02)
[2023-12-23] MEDS ORDERED: DAPTOmycin 500 MG in SODIUM CHL 0.9% 50 ML IV SCH (13:00)
[2023-12-23] MEDS: MORPHINE SULFATE INJ 2 MG/ml SYRG IV PRN (13:51)
[2023-12-23] MEDS: DAPTOmycin 250 MG in SODIUM CHL 0.9% 50 ML IV SCH (16:22)
[2023-12-24] VITALS (47 sets, daily range): BP systolic 81–116; BP diastolic 48–72; PULSE 96–126; RESP 12–22; TEMP 97.2–99.2; O2SAT 95–100
[2023-12-24 04:44] LABS: Basophils # (auto) 0 10 ^3/uL (0-0.2); Eosinophils # (auto) 0 10 ^3/uL (0-0.8); Lymphocytes # (auto) 0.2 10 ^3/uL (0.4-5.4); Monocytes # (auto) 0 10 ^3/uL (0-1.3); Neutrophils # (auto) 0.2 10 ^3/uL (1.6-8.6)
[2023-12-24 04:46] LABS: Basophils % (auto) 1.2 % (0.0-2.0); Eosinophils % (auto) 1.1 % (0.0-7.0); Lymphocytes % (auto) 46.2 % (10.0-50.0); Mean Corpuscular Hemoglobin 31.8 pg (28.0-32.0); Mean Corpuscular Hgb Conc. 34.4 g/dL (32.0-36.0); Mean Corpuscular Volume 92.6 fL (80.0-100.0); Monocytes % (auto) 3.5 % (0.0-12.0); Nucleated Red Blood Cells % 0.6 %; Red Blood Cells 1.84 10^6/uL (4.5-5.90); Red Cell Distribution Width 13.5 % (11.8-14.3)
[2023-12-24 04:57] LABS: Hemoglobin 5.8 g/dL (13.5-17.5); White Blood Cell 0.5 10^3/uL (4.4-10.8)
[2023-12-24 05:01] LABS: Alanine Aminotransferase 82 U/L (7-40); Albumin 2.5 g/dL (3.2-4.8); Alkaline Phosphatase 179 U/L (46-116); Anion Gap 5 (5-15); Aspartate Aminotransferase 37 U/L (13-40); BUN/Creatinine Ratio 64.8 (10.0-20.0); Bilirubin, Total 0.5 mg/dL (0.2-1.0); Calcium 8.5 mg/dL (8.7-10.4); Carbon Dioxide 27 mmol/L (20-30); Chloride 114 mmol/L (98-107); Creatine Kinase IFCC < 15 U/L (46-171); Glucose 203 mg/dL (74-106); Magnesium 1.9 mg/dL (1.6-2.6); Sodium 146 mmol/L (136-145); Total Protein 3.9 g/dL (5.7-8.2)
[2023-12-24 05:05] LABS: Blood Urea Nitrogen 68 mg/dL (9-23)
[2023-12-24] MEDS: MAGNESIUM SULFATE 1GM/100ML 100 ML IV ONE (07:47)
[2023-12-24] MEDS ORDERED: HYDROcodone-ACET 5/325MG TAB PO PRN (17:30)
[2023-12-24] MEDS: HYDROmorphone HCL 2 MG/ML VL/or syr IV PRN (18:11)
[2023-12-24 20:19] LABS: Basophils # (auto) 0 10 ^3/uL (0-0.2); Eosinophils # (auto) 0 10 ^3/uL (0-0.8); Hematocrit 16.9 % (41.0-53.0); Lymphocytes # (auto) 0.2 10 ^3/uL (0.4-5.4); Mean Corpuscular Hemoglobin 29.5 pg (28.0-32.0); Monocytes # (auto) 0 10 ^3/uL (0-1.3); Neutrophils # (auto) 0.3 10 ^3/uL (1.6-8.6); Red Cell Distribution Width 15.9 % (11.8-14.3)
[2023-12-24 20:21] LABS: Eosinophils % (auto) 1.1 % (0.0-7.0); Lymphocytes % (auto) 41.1 % (10.0-50.0); Mean Corpuscular Hgb Conc. 33.8 g/dL (32.0-36.0); Mean Corpuscular Volume 87.3 fL (80.0-100.0); Monocytes % (auto) 1.4 % (0.0-12.0); Neutrophils % (auto) 54.4 % (37.0-80.0); Nucleated Red Blood Cells % 0.3 %; Red Blood Cells 1.93 10^6/uL (4.5-5.90)
[2023-12-24 21:05] LABS: White Blood Cell 0.6 10^3/uL (4.4-10.8)
[2023-12-24 21:06] LABS: Hemoglobin 5.7 g/dL (13.5-17.5)
[2023-12-24 21:25] LABS: Platelet Estimate Markedly Decreased
[2023-12-24] MEDS: GABAPENTIN 300 MG CAP PO SCH (22:05)
[2023-12-24] MEDS: ALLOPURINOL 100 MG TAB PO ONE (22:06)
[2023-12-25] VITALS (51 sets, daily range): BP systolic 77–127; BP diastolic 34–72; PULSE 96–114; RESP 12–28; TEMP 96.9–98.8; O2SAT 96–100
[2023-12-25 04:50] LABS: Hematocrit 20.6 % (41.0-53.0); Hemoglobin 7.4 g/dL (13.5-17.5); Mean Corpuscular Hgb Conc. 35.7 g/dL (32.0-36.0); Mean Corpuscular Volume 86.9 fL (80.0-100.0); Red Blood Cells 2.37 10^6/uL (4.5-5.90)
[2023-12-25 05:04] LABS: Alanine Aminotransferase 78 U/L (7-40); Albumin 2.4 g/dL (3.2-4.8); Alkaline Phosphatase 172 U/L (46-116); Anion Gap 6 (5-15); Aspartate Aminotransferase 43 U/L (13-40); BUN/Creatinine Ratio 77.2 (10.0-20.0); Calcium 8.6 mg/dL (8.7-10.4); Carbon Dioxide 27 mmol/L (20-30); Chloride 115 mmol/L (98-107); Glucose 191 mg/dL (74-106); Sodium 148 mmol/L (136-145)
[2023-12-25 05:05] LABS: Bilirubin, Total 0.7 mg/dL (0.2-1.0); Total Protein 3.7 g/dL (5.7-8.2); White Blood Cell 0.6 10^3/uL (4.4-10.8)
[2023-12-25 05:06] LABS: Basophils % (manual) 0 (0.0-2.0); Blast Cells 0; Metamyelocytes % 0; Myelocytes % 0; Promyelocytes % 0; Reactive Lymphocytes 0
[2023-12-25 05:21] LABS: Blood Urea Nitrogen 88 mg/dL (9-23)
[2023-12-25 06:44] LABS: Band Neutrophils % (manual) 4; Eosinophils % (manual) 1 (0-7); Lymphocytes % (manual) 40 (10.0-50.0); Monocytes % (manual) 5 (0-12)
[2023-12-25 06:45] LABS: Platelet Estimate Markedly Decreased
[2023-12-25] MEDS ORDERED: ALLOPURINOL 100 MG TAB PO SCH (10:00)
[2023-12-25] MEDS: OXYCODONE W/ ACETAMINOPHEN 5/325MG TABLET PO PRN (10:28)
[2023-12-25] MEDS ORDERED: DEXTROSE (50%) 50ML SYRG IV PRN (19:45)
[2023-12-25 22:19] LABS: Basophils # (auto) 0 10 ^3/uL (0-0.2); Eosinophils # (auto) 0 10 ^3/uL (0-0.8); Hematocrit 16.7 % (41.0-53.0); Lymphocytes # (auto) 0.2 10 ^3/uL (0.4-5.4); Mean Corpuscular Hemoglobin 29.5 pg (28.0-32.0); Monocytes # (auto) 0 10 ^3/uL (0-1.3); Neutrophils # (auto) 0.2 10 ^3/uL (1.6-8.6); Nucleated Red Blood Cells % 0.3 %
[2023-12-25 22:20] LABS: Basophils % (auto) 2.3 % (0.0-2.0); Eosinophils % (auto) 2.3 % (0.0-7.0); Lymphocytes % (auto) 45.9 % (10.0-50.0); Mean Corpuscular Hgb Conc. 33.5 g/dL (32.0-36.0); Mean Corpuscular Volume 87.9 fL (80.0-100.0); Monocytes % (auto) 2.8 % (0.0-12.0); Neutrophils % (auto) 46.7 % (37.0-80.0); Red Cell Distribution Width 15.2 % (11.8-14.3)
[2023-12-25 22:24] LABS: Hemoglobin 5.6 g/dL (13.5-17.5); White Blood Cell 0.5 10^3/uL (4.4-10.8)
[2023-12-25] MEDS: ACCU-CHEK COMFORT CURVE STRIP VI SCH (22:24)
[2023-12-25] MEDS: InsuLIN REG 1unit/0.01ml Soln (100units/ml) SC SCH (22:24)
[2023-12-25 22:38] LABS: Alanine Aminotransferase 78 U/L (7-40); Albumin 2.4 g/dL (3.2-4.8); Alkaline Phosphatase 187 U/L (46-116); Anion Gap 5 (5-15); Aspartate Aminotransferase 44 U/L (13-40); BUN/Creatinine Ratio 82.8 (10.0-20.0); Bilirubin, Total 0.7 mg/dL (0.2-1.0); Calcium 8.7 mg/dL (8.7-10.4); Carbon Dioxide 28 mmol/L (20-30); Chloride 115 mmol/L (98-107); Glucose 216 mg/dL (74-106); Magnesium 1.9 mg/dL (1.6-2.6); Potassium 4.1 mmol/L (3.5-5.1); Sodium 148 mmol/L (136-145); Total Protein 3.8 g/dL (5.7-8.2)
[2023-12-25 22:40] LABS: Blood Urea Nitrogen 101 mg/dL (9-23)
[2023-12-25 22:54] LABS: Platelet Estimate Markedly Decreased
[2023-12-26] VITALS (26 sets, daily range): BP systolic 91–149; BP diastolic 44–78; PULSE 84–103; RESP 12–23; TEMP 96.9–98.1; O2SAT 99–100
[2023-12-26 06:47] LABS: Basophils # (auto) 0 10 ^3/uL (0-0.2); Eosinophils # (auto) 0 10 ^3/uL (0-0.8); Eosinophils % (auto) 3.5 % (0.0-7.0); Hemoglobin 8.3 g/dL (13.5-17.5); Lymphocytes # (auto) 0.2 10 ^3/uL (0.4-5.4); Monocytes # (auto) 0 10 ^3/uL (0-1.3); Neutrophils # (auto) 0.3 10 ^3/uL (1.6-8.6)
[2023-12-26 06:48] LABS: Basophils % (auto) 2.6 % (0.0-2.0); Hematocrit 24.1 % (41.0-53.0); Lymphocytes % (auto) 42.9 % (10.0-50.0); Mean Corpuscular Hemoglobin 30.7 pg (28.0-32.0); Mean Corpuscular Hgb Conc. 34.4 g/dL (32.0-36.0); Mean Corpuscular Volume 89.2 fL (80.0-100.0); Monocytes % (auto) 2.3 % (0.0-12.0); Neutrophils % (auto) 48.7 % (37.0-80.0); Nucleated Red Blood Cells % 1.1 %; Red Cell Distribution Width 14.5 % (11.8-14.3)
[2023-12-26 07:00] LABS: White Blood Cell 0.5 10^3/uL (4.4-10.8)
[2023-12-26 07:03] LABS: Alanine Aminotransferase 74 U/L (7-40); Albumin 2.3 g/dL (3.2-4.8); Alkaline Phosphatase 180 U/L (46-116); Anion Gap 6 (5-15); Aspartate Aminotransferase 46 U/L (13-40); BUN/Creatinine Ratio 80.5 (10.0-20.0); Calcium 8.4 mg/dL (8.7-10.4); Carbon Dioxide 27 mmol/L (20-30); Chloride 115 mmol/L (98-107); Glucose 206 mg/dL (74-106); Magnesium 1.8 mg/dL (1.6-2.6); Sodium 148 mmol/L (136-145)
[2023-12-26 07:04] LABS: Bilirubin, Total 0.9 mg/dL (0.2-1.0); Total Protein 3.7 g/dL (5.7-8.2)
[2023-12-26 07:09] LABS: Blood Urea Nitrogen 95 mg/dL (9-23)
== END 2023-12-26 17:30 | disposition home health service (06) | DRG 871 ==
LOC: EDBD 09:52 → ER 09:52 → TELE 14:00 → ICU CENTRL 14:00 → DOU IN ICU 12-24 03:29
PROVIDERS: ADMIT Internal Medicine Geriatric Medicine; ATTEND Internal Medicine Geriatric Medicine
PROC: 30233N1 Transfusion of Nonautologous Red Blood Cells into Peripheral Vein, Percutaneous Approach (ICD-10-PCS; 2023-12-17)
PROC: 30233R1 Transfusion of Nonautologous Platelets into Peripheral Vein, Percutaneous Approach (ICD-10-PCS; principal; 2023-12-18)
DX: A41.9 Sepsis, unspecified organism (principal); G93.41 Metabolic encephalopathy; L89.893 Pressure ulcer of other site, stage 3; R65.21 Severe sepsis with septic shock; N17.0 Acute kidney failure with tubular necrosis; R57.1 Hypovolemic shock; J96.21 Acute and chronic respiratory failure with hypoxia; C85.90 Non-Hodgkin lymphoma, unspecified, unspecified site; K92.2 Gastrointestinal hemorrhage, unspecified; D61.818 Other pancytopenia; I50.32 Chronic diastolic (congestive) heart failure; Z68.41 Body mass index [BMI] 40.0-44.9, adult; D64.9 Anemia, unspecified; Z20.822 Contact with and (suspected) exposure to COVID-19; D69.6 Thrombocytopenia, unspecified; E03.9 Hypothyroidism, unspecified; K21.9 Gastro-esophageal reflux disease without esophagitis; E78.5 Hyperlipidemia, unspecified; I11.0 Hypertensive heart disease with heart failure; I25.10 Atherosclerotic heart disease of native coronary artery without angina pectoris; C88.0 Waldenstrom macroglobulinemia; E66.01 Morbid (severe) obesity due to excess calories; E77.8 Other disorders of glycoprotein metabolism; Z96.653 Presence of artificial knee joint, bilateral; I49.3 Ventricular premature depolarization; D70.9 Neutropenia, unspecified; E83.42 Hypomagnesemia; K59.00 Constipation, unspecified; Z88.1 Allergy status to other antibiotic agents; Z85.46 Personal history of malignant neoplasm of prostate; Z88.6 Allergy status to analgesic agent; Z82.49 Family history of ischemic heart disease and other diseases of the circulatory system; Z80.3 Family history of malignant neoplasm of breast
CPT/HCPCS: 36415; 36600; 70450; 71045; 71250; 74176; 80053; 80074; 80202; 81001; 82140; 82270; 82533; 82550; 82565; 82805; 82962; 83605; 83615; 83690; 83735; 83880; 83930; 84443; 84484; 84550; 85007; 85014; 85018; 85025; 85027; 85384; 85610; 85730; 86141; 86644; 86645; 86664; 86850; 86900; 86901; 86920; 87040; 87077; 87081; 87086; 87186; 87205; 87426; 87804; 92610; 93005; 93971; 96365; 96375; C9113; G0378; J1447; J1815; J2248